=== PATIENT | female | born 1940 | race Caucasian/White ===

== ENCOUNTER 2023-06-29 13:24 | Emergency (ER) | payer MEDICARE, OTHER, SELFPAY ==
[2023-06-29 13:25] VITALS: BP 114/54; BMI 28.1
[2023-06-29] MEDS: PERCOCET 5/325 1 TABLET PO (14:21)
--- NOTE | 2023-06-29 14:22 | ED.GENMED ---
Addendum entered and electronically signed by Viot Kirby DO 06/29/23 15:57:
Patient ambulated in the ER with a walker looks comfortable
Original Note:
History of Present Illness
General
Chief Complaint: Back Pain
Source: patient and family
Exam Limitations: none
Time Seen by Provider: 06/29/23 14:09
Nursing documentation reviewed up to this point in time: agreed with
Travel History
Have you had any contact with someone who has COVID-19?: No
Do you have any symptoms of coronavirus? Fever > 100 degrees, chills, cough, shortness of breath, sore throat, loss of taste or smell, muscle aches, or headache?: No
History of Present Illness
History of Present Illness:
82 female lives alone accompanied by her sister atraumatic left-sided back pain, worse with movement feels like a spasm onset a day or so ago has history of back issues seen by Dr. Cronin had a procedure few years ago she had aneurysm clip cannot
get an MRI, she has a pacemaker A-fib on Eliquis also diabetes no fevers no trouble urinating no problems her bowels
Past History
Past History
ED Past Medical History: Arrthythmia, HTN, Hypercholesterolemia and NIDDM
ED Past Surgical History: Cardiac and Orthopedic (Minimally invasive back procedure)
Social History
Tobacco: Non-smoker
Alcohol: None
Drug: None
Personal: Single
Living: alone
Employment: Employed
Review of Systems
Review of Systems
All Other Systems: Not applicable
Constitutional: Denies fever or chills
EENT: Reports no symptoms
Respiratory: Reports no symptoms
Cardiac: Reports no symptoms
ABD/GI: Reports no symptoms
: Reports no symptoms; Denies incontinence or bleeding
Musculoskeletal: Reports back pain
Neurological: Reports no symptoms
Phy Exam
Physical Exam
Physical Exam:
Physical Exam
General: no apparent distress, not acutely ill
Neck: No jaundice
Heart: Regular
Lungs: no acute respiratory distress.
Back: Reproducible spasm in the lower lumbar region on the left
Neuro: alert and oriented. no focal neurological deficits
Skin: no rash
Psychiatric: well kept. interactive and cooperative
Extremities: Positive straight leg raise on the left around 40 degrees
Course
Orders/Labs/Results
Orders:
Orders
06/29/23 14:19
Oxycodone/Acetaminophen [Percocet 5/325] 1 tablet PO NOW STA
Lumbar Spine, 2 or 3 View [CR Lumbar Spine 2 Or 3 Views] Urgent
Comment:
Reason For Exam: pain
06/29/23 16:00
Lidocaine [Lidocaine 4% Patch] 1 patch TOPICAL DAILY
Vital Signs
Initial and Last Documented VS:
Initial Vital Signs
Temp Pulse Resp BP Pulse Ox
98.2 F 88 16 114/54 99
06/29/23 13:25 06/29/23 13:25 06/29/23 13:25 06/29/23 13:25 06/29/23 13:25
Last Documented Vital Signs
Temp Pulse Resp BP Pulse Ox
98.2 F 67 16 120/46 100
06/29/23 13:25 06/29/23 15:25 06/29/23 15:25 06/29/23 15:25 06/29/23 15:25
MDM/Problems Addressed
Differential Diagnosis Includes:
Strain strain radiculopathy very low clinical suspicion for discitis or epidural abscess no signs of cauda equina by history physical
MDM/Problems Addressed:
Back pain
Chronic conditions affecting care:
Prior back issues
Chronic conditions affecting care: DM and Arrhythmia
Acute Exacerbation and/or Progression of Chronic Illness: DM and Arrhythmia
*Radiology
Radiology exam reviewed: preliminary read by ED provider
*Pulse Oximetry
Patient hypoxic: no
*Critical Care Note
Total Time (30-74mins, 75-104mins- exclusive of procedures): Not Applicable
Update Note
Update Note:
Update x-ray noted
Patient appears comfortable will ambulate her try Lidoderm patch for home
f/u with Andrea Cronin
ED Attending Note
-
Portions of this chart may have been created with voice recognition software.� Occasional wrong word or��sound alike� substitutions may have occurred due to the inherent limitations of voice recognition software.
Discharge Plan
Departure
Patient Disposition: Home (Routine Discharge)
Date of Disposition: 06/29/23
Time of Disposition: 15:52
Patient with high blood pressure during this ER visit?: No
Condition: Good
Discharge Problem:
Back pain
Instructions: Low Back Pain (DC)
Prescriptions:
New
oxycodone-acetaminophen [Percocet] 5-325 mg tablet
1 tab PO Q6HPRN PRN (Reason: pain) Qty: 10 0RF
docusate sodium [Colace] 100 mg capsule
100 mg PO BID PRN (Reason: constipation) Qty: 20 0RF
lidocaine [Lidoderm] 5 % adhesive patch,medicated
1 patch topical DAILY Qty: 15 0RF
Rx Instructions:
Take off after 12 hours
No Action
Areds
1 tab PO BID
metformin 500 MG tablet
850 mg PO BID
atenolol 25 MG tablet
25 mg PO HS
lisinopril 2.5 MG tablet
2.5 mg PO QPM
atenolol 50 MG tablet
50 mg PO .AM
glipizide 5 MG tablet
5 mg PO DAILY
Simvastatin
40 mg PO QPM
Eliquis:
5 mg PO BID Qty: 0 0RF
Rx Instructions:
Restart on 02/19/14
Referrals:
Dale Carias, [Family Provider] -
Interventions
Interventions:
*Risk Screen - Suicide Last Done: 06/29/23 13:25
*General Assessment Last Done: 06/29/23 13:44
*Neglect/Abuse Screening Last Done: 06/29/23 13:25
ED- Fall Risk Assessment Last Done: 06/29/23 14:07
*ED COVID-19 Vaccine History Last Done: 06/29/23 13:25
ED-Musculoskeletal Assessment Last Done: 06/29/23 13:44
[2023-06-29 15:25] VITALS: BP 120/46
[2023-06-29] MEDS: LIDOCAINE 4% PATCH 1 PATCH TOPICAL (15:53)
--- NOTE | 2023-06-29 15:56 | ED.GENMED ---
History of Present Illness
General
Chief Complaint: Back Pain
Time Seen by Provider: 06/29/23 14:09
Travel History
Have you had any contact with someone who has COVID-19?: No
Do you have any symptoms of coronavirus? Fever > 100 degrees, chills, cough, shortness of breath, sore throat, loss of taste or smell, muscle aches, or headache?: No
Past History
Past History
ED Past Medical History: Arrthythmia, HTN, Hypercholesterolemia and NIDDM
ED Past Surgical History: Cardiac and Orthopedic (Minimally invasive back procedure)
Social History
Tobacco: Non-smoker
Alcohol: None
Drug: None
Personal: Single
Living: alone
Employment: Employed
Course
Orders/Labs/Results
Orders:
Orders
06/29/23 14:19
Oxycodone/Acetaminophen [Percocet 5/325] 1 tablet PO NOW STA
Lumbar Spine, 2 or 3 View [CR Lumbar Spine 2 Or 3 Views] Urgent
Comment:
Reason For Exam: pain
06/29/23 16:00
Lidocaine [Lidocaine 4% Patch] 1 patch TOPICAL DAILY
Vital Signs
Initial and Last Documented VS:
Initial Vital Signs
Temp Pulse Resp BP Pulse Ox
98.2 F 88 16 114/54 99
06/29/23 13:25 06/29/23 13:25 06/29/23 13:25 06/29/23 13:25 06/29/23 13:25
Last Documented Vital Signs
Temp Pulse Resp BP Pulse Ox
98.2 F 67 16 120/46 100
06/29/23 13:25 06/29/23 15:25 06/29/23 15:25 06/29/23 15:25 06/29/23 15:25
Update Note
Update Note:
Update patient ambulating around the ER with her walker looks comfortable
ED Attending Note
-
Portions of this chart may have been created with voice recognition software.� Occasional wrong word or��sound alike� substitutions may have occurred due to the inherent limitations of voice recognition software.
Discharge Plan
Departure
Patient Disposition: Home (Routine Discharge)
Date of Disposition: 06/29/23
Time of Disposition: 15:52
Patient with high blood pressure during this ER visit?: No
Condition: Good
Discharge Problem:
Back pain
Instructions: Low Back Pain (DC)
Prescriptions:
New
oxycodone-acetaminophen [Percocet] 5-325 mg tablet
1 tab PO Q6HPRN PRN (Reason: pain) Qty: 10 0RF
docusate sodium [Colace] 100 mg capsule
100 mg PO BID PRN (Reason: constipation) Qty: 20 0RF
lidocaine [Lidoderm] 5 % adhesive patch,medicated
1 patch topical DAILY Qty: 15 0RF
Rx Instructions:
Take off after 12 hours
No Action
Areds
1 tab PO BID
metformin 500 MG tablet
850 mg PO BID
atenolol 25 MG tablet
25 mg PO HS
lisinopril 2.5 MG tablet
2.5 mg PO QPM
atenolol 50 MG tablet
50 mg PO .AM
glipizide 5 MG tablet
5 mg PO DAILY
Simvastatin
40 mg PO QPM
Eliquis:
5 mg PO BID Qty: 0 0RF
Rx Instructions:
Restart on 02/19/14
Referrals:
Andrea Cronin MD [Active] - Next open appointment
Dale Carias DO [Family Provider] - Next open appointment
Interventions
Interventions:
*Risk Screen - Suicide Last Done: 06/29/23 13:25
*General Assessment Last Done: 06/29/23 13:44
*Neglect/Abuse Screening Last Done: 06/29/23 13:25
ED- Fall Risk Assessment Last Done: 06/29/23 14:07
*ED COVID-19 Vaccine History Last Done: 06/29/23 13:25
ED-Musculoskeletal Assessment Last Done: 06/29/23 13:44
--- NOTE | 2023-06-29 16:26 | EDRN ---
pt was able to ambulate with a walker without difficulty. Discharged home with pain meds.
== END 2023-06-29 16:27 | disposition home or self-care (01) ==
LOC: EMR 13:24
PROVIDERS: EMERGENCY PHYSICIAN Emergency Medicine; FAMILY PHYSICIAN Family Medicine
DX: M54.9 Dorsalgia, unspecified (principal); I10 Essential (primary) hypertension; E78.00 Pure hypercholesterolemia, unspecified; E11.9 Type 2 diabetes mellitus without complications; G89.29 Other chronic pain
CPT/HCPCS: 99283; 72100

== ENCOUNTER → 2023-07-22 10:24 | Outpatient (REF) | payer MEDICARE, OTHER, SELFPAY | LOC: RAD 10:24 | PROVIDERS: ATTENDING PHYSICIAN Internal Medicine Cardiovascular Disease; FAMILY PHYSICIAN Family Medicine | DX: R42 Dizziness and giddiness (principal); E85.4 Organ-limited amyloidosis | CPT/HCPCS: 78803; A9538 ==

== ENCOUNTER → 2023-09-18 09:17 | Outpatient (REF) | payer MEDICARE, OTHER, SELFPAY | LOC: RAD 09:17 | PROVIDERS: ATTENDING PHYSICIAN Internal Medicine Cardiovascular Disease; FAMILY PHYSICIAN Family Medicine | DX: R42 Dizziness and giddiness (principal); I65.23 Occlusion and stenosis of bilateral carotid arteries | CPT/HCPCS: 93880 ==

== ENCOUNTER → 2023-09-22 10:56 | Outpatient (REF) | payer MEDICARE, OTHER, SELFPAY | LOC: WDC 10:56 | PROVIDERS: ATTENDING PHYSICIAN Family Medicine | DX: Z12.31 Encounter for screening mammogram for malignant neoplasm of breast (principal) | CPT/HCPCS: 77063; 77067 ==

== ENCOUNTER → 2023-11-26 09:10 | Outpatient (REF) | payer MEDICARE, OTHER, SELFPAY | LOC: RAD 09:10 | PROVIDERS: ATTENDING PHYSICIAN Family Medicine | DX: M85.89 Other specified disorders of bone density and structure, multiple sites (principal) | CPT/HCPCS: 77080 ==

== ENCOUNTER → 2024-03-01 09:27 | Outpatient (REF) | payer MEDICARE, OTHER, SELFPAY | LOC: RCS 09:27 | PROVIDERS: ATTENDING PHYSICIAN Internal Medicine Cardiovascular Disease; FAMILY PHYSICIAN Family Medicine | DX: E85.4 Organ-limited amyloidosis (principal); I43 Cardiomyopathy in diseases classified elsewhere | CPT/HCPCS: 93306; 93356 ==

== ENCOUNTER → 2024-03-23 10:27 | Outpatient (REF) | payer MEDICARE, OTHER, SELFPAY | LOC: RAD 10:27 | PROVIDERS: ATTENDING PHYSICIAN Internal Medicine Cardiovascular Disease; FAMILY PHYSICIAN Family Medicine | DX: I65.23 Occlusion and stenosis of bilateral carotid arteries (principal) | CPT/HCPCS: 93880 ==

== ENCOUNTER → 2024-06-03 10:32 | Outpatient (REF) | payer MEDICARE, OTHER, SELFPAY | LOC: HWRAD 10:32 | PROVIDERS: ATTENDING PHYSICIAN Psychiatry & Neurology Neurology; FAMILY PHYSICIAN Family Medicine | DX: M54.16 Radiculopathy, lumbar region (principal); M54.12 Radiculopathy, cervical region | CPT/HCPCS: 72125; 72131 ==

== ENCOUNTER 2024-07-24 18:07 | Emergency (ER) | payer MEDICARE, OTHER, SELFPAY ==
[2024-07-24] VITALS (10 sets, daily range): BP systolic 101–152; BP diastolic 45–70
[2024-07-24 18:35] LABS: % Basophils 0.3 % (0-2); % Immature Granulocytes 0.4 % (0-0.5); % Lymphocytes 4.5 % (20.5-51.1); % Monocytes 4.9 % (1.7-9.3); % Neutrophils 89.9 % (42.2-75.2); Absolute Lymphocytes 0.5 10^3/uL (1.2-3.4); Absolute Monocytes 0.5 10^3/uL (0.1-0.6); Absolute Neutrophils 9.8 10^3/uL (1.4-6.5); Hemoglobin 12.3 g/dL (12.0-16.0); Mean Corp Hgb Conc. 34.2 g/dL (33.0-37.0); Mean Corpuscular Hgb 31.6 pg (27.0-31.0); Mean Corpuscular Volume 92.5 fL (81.0-99.0); Mean Platelet Volume 10.3 fL (7.4-10.4); Nucleated Red Blood Cells % 0 %; Platelet Count 114 10^3/uL (130-400); Red Blood Cell Count 3.89 10^6/uL (4.20-5.40); Red Cell Dist. Width 13.2 % (11.5-14.5); White Blood Cell Count 10.8 10^3/uL (4.8-10.8)
[2024-07-24 18:43] LABS: Lactic Acid 3.3 mmol/L (0.7-2.0)
[2024-07-24 18:48] LABS: COVID-19 Antigen Negative (Negative)
[2024-07-24 18:50] LABS: AST (SGOT) 83 U/L (14-36); Albumin 3.5 g/dl (3.5-5.0); Alkaline Phosphatase 90 U/L (38-126); Blood Urea Nitrogen 38 mg/dl (7-17); Calcium 8.9 mg/dl (8.4-10.2); Carbon Dioxide 20 mmol/L (22-30); Chloride 103 mmol/L (98-107); Glucose 208 mg/dl (70-99); Potassium 3.8 mmol/L (3.5-5.1); Sodium 135 mmol/L (135-145); Total Bilirubin 1.2 mg/dl (0.2-1.3); Total Protein 6.2 g/dl (6.3-8.2); eGFR 41.06
[2024-07-24 19:01] LABS: ALT (SGPT) 77 U/L (0-35)
[2024-07-24] MEDS: NSS 1000 IV (20:06)
--- NOTE | 2024-07-24 21:02 | ED.GENMED ---
Addendum entered and electronically signed by Sukumar Corrigan PA-C 07/25/24 08:53:
Blood culture shows gram-negative bacilli in the pulmonary result. I called the patient and spoke with her advised she can return here for further evaluation
Original Note:
History of Present Illness
General
Chief Complaint: Fever
Source: patient
Exam Limitations: none
Time Seen by Provider: 07/24/24 19:42
History of Present Illness
History of Present Illness:
Shaking chills 2 days ago. Had a near syncopal episode during that spell. [place] off yesterday some nausea just not feeling well. Not more specific than that. Today actually feels slightly better. No cough no abdominal pain no urinary symptoms no
fever. Recent back surgery. No distal numbness tingling or weakness.
Past History
Past History
ED Past Medical History: Arrthythmia, HTN, Hypercholesterolemia and NIDDM
ED Past Surgical History: Cardiac and Orthopedic (Minimally invasive back procedure)
Social History
Tobacco: Non-smoker
Alcohol: None
Drug: None
Personal: Single
Living: alone
Employment: Employed
Review of Systems
Review of Systems
All Other Systems: Not applicable
Constitutional: Reports chills
Cardiac: Reports no symptoms
ABD/GI: Denies abdominal pain
: Reports no symptoms
Phy Exam
Physical Exam
Physical Exam:
GENERAL: Alert and oriented in no apparent distress
EYE: Orbits normal.
NECK: Supple, no significant adenopathy.
ENT: Pharynx without erythema
CARDIAC: Regular rate and rhythm without any obvious murmurs.
LUNGS: Clear breath sounds,normal
ABDOMEN: Soft, without focal tenderness or distention
NEUROLOGICAL: Alert and oriented , grossly non-focal. Good lower extremity strength
SKIN: Warm and dry, no rash or lesion, no discoloration, skin intact.
MUSCULOSKELETAL: No edema,no deformity.Good color
PSYCH: Normal and appropriate interaction.
Course
Orders/Labs/Results
Orders:
Orders
07/24/24 18:15
Electrocardiogram (*1) Urgent
Reason for Study: Fatigue / Weakness
EKG- Treatment ONCE
07/24/24 18:21
COVID-19 Antigen Urgent
Source: Nasal Swab
Complete Blood Count/With Diff Urgent
Comprehensive Metabolic Panel Urgent
Lactic Acid Urgent
Blood Culture Urgent
DIONICIO Source: Blood/Venous
Specimen Description:
Influenza A+B Rapid Molecular Urgent
DIONICIO Source: Nasal Swab
Specimen Description:
07/24/24 19:54
IV Insert/Care/Rem.- Treatment PRN
0.9% Sodium Chloride 1000 ml [Nss] 1,000 ml IV BOLUS
CXR2 [CR Chest - 2 Views ] Urgent
Comment:
Reason For Exam: Fever chills
07/24/24 19:56
US Abdomen Complete/Upper Urgent
Comment:
Reason For Exam: Fever/elevated LFTs
07/24/24 22:00
Urinalysis Reflex To Culture Urgent
Date Specimen was Collected: 07/24/24
Time Specimen was Collected: 19:58
Urine Microscopic Reflex Cult Urgent
Urine Culture Urgent
DIONICIO Source: U
Specimen Description:
Date Specimen was Collected: 07/24/24
Time Specimen was Collected: 19:58
07/24/24 22:01
Lactic Acid Urgent
07/24/24 22:53
CefTRIAXone [Rocephin] 1,000 mg IV NOW STA
07/24/24 23:29
CefTRIAXone [Rocephin] 1,000 mg .ROUTE .STK-MED ONE
Abnormal Lab Results
07/24/24 07/24/24
18:21 22:00
RBC 3.89 L 10^6/uL
(4.20-5.40)
Hct 36.0 L %
(37.0-47.0)
MCH 31.6 H pg
(27.0-31.0)
Plt Count 114 L 10^3/uL
(130-400)
Absolute Neuts (auto) 9.8 H 10^3/uL
(1.4-6.5)
Absolute Lymphs (auto) 0.5 L 10^3/uL
(1.2-3.4)
Neutrophils % 89.9 H %
(42.2-75.2)
Lymphocytes % 4.5 L %
(20.5-51.1)
Carbon Dioxide 20 L mmol/L
(22-30)
BUN 38 H mg/dl
(7-17)
Creatinine 1.3 H mg/dL
(0.6-1.0)
Glucose 208 H mg/dl
(70-99)
Lactic Acid 3.3 H mmol/L
(0.7-2.0)
AST 83 H U/L
(14-36)
ALT 77 H U/L
(0-35)
Total Protein 6.2 L g/dl
(6.3-8.2)
Ur Occult Blood Reflex 2+ A
(Negative)
Leukocyte Esterase Rfl 1+ A
(Negative)
Urine RBC 16-20 A /HPF
(0-2)
Urine WBC (Reflex) >100 A /HPF
(0-5)
Urine Bacteria (Reflex) Many A
(Negative)
Urine Glucose 4+ A
(Negative)
Urine Albumin (Reflex) 2+ A
(Neg - Trace)
07/24/24 18:21
07/24/24 18:21
Vital Signs
Initial and Last Documented VS:
Initial Vital Signs
Temp Pulse Resp BP Pulse Ox
100.5 F H 87 16 101/45 99
07/24/24 18:09 07/24/24 18:09 07/24/24 18:09 07/24/24 18:09 07/24/24 18:09
Last Documented Vital Signs
Temp Pulse Resp BP Pulse Ox
100.5 F H 76 17 135/54 98
07/24/24 18:09 07/24/24 20:54 07/24/24 20:54 07/24/24 23:00 07/24/24 23:00
*Radiology
Radiology exam reviewed: preliminary read by ED provider (Negative) and radiology read reviewed (Unremarkable ultrasound)
*Pulse Oximetry
Patient hypoxic: no
*Critical Care Note
Total Time (30-74mins, 75-104mins- exclusive of procedures): Not Applicable
Update Note
Update Note:
Patient is remained stable and nontoxic. She appears well. Labs are stable. Initial lactic acid which was elevated is now perfectly normal. I clinically do not feel she is septic. Urinalysis is positive. There is no hydronephrosis. Will start
Rocephin Omnicef and follow-up. Interrogation was within normal limits. Back appears well. No neurologic symptoms related to her recent surgery. No erythema or drainage.
ED Attending Note
-
Portions of this chart may have been created with voice recognition software.� Occasional wrong word or��sound alike� substitutions may have occurred due to the inherent limitations of voice recognition software.
Discharge Plan
Departure
Patient Disposition: Home (Routine Discharge)
Date of Disposition: 07/24/24
Time of Disposition: 22:54
Patient with high blood pressure during this ER visit?: Yes
Discharge Problem:
UTI/early pyelonephritis, Pacemaker, Near syncope
Instructions: Urinary tract infections in adults, Near Fainting (DC)
Prescriptions:
New
cefdinir 300 mg capsule
300 mg PO BID 7 Days Qty: 14 0RF
No Action
Areds
1 tab PO BID
metformin 500 MG tablet
850 mg PO BID
atenolol 25 MG tablet
25 mg PO HS
lisinopril 2.5 MG tablet
2.5 mg PO QPM
atenolol 50 MG tablet
50 mg PO .AM
glipizide 5 MG tablet
5 mg PO DAILY
Simvastatin
40 mg PO QPM
Eliquis:
5 mg PO BID Qty: 0 0RF
Rx Instructions:
Restart on 02/19/14
oxycodone-acetaminophen [Percocet] 5-325 mg tablet
1 tab PO Q6HPRN PRN (Reason: pain) Qty: 10 0RF
docusate sodium [Colace] 100 mg capsule
100 mg PO BID PRN (Reason: constipation) Qty: 20 0RF
lidocaine [Lidoderm] 5 % adhesive patch,medicated
1 patch topical DAILY Qty: 15 0RF
Rx Instructions:
Take off after 12 hours
Referrals:
Dale Carias, [Family Provider] - Follow up in 2-3 days
Activity Restrictions/Additional Instructions:
Your prescription was sent to your pharmacy. Start the oral antibiotics tomorrow evening
Stay well-hydrated
Follow-up closely with your primary physician
Interventions
Interventions:
*Risk Screen - Suicide Last Done: 07/24/24 18:15
*General Assessment Last Done: 07/24/24 23:40
*Neglect/Abuse Screening Last Done: 07/24/24 18:15
*ED- Fall Risk Assessment Last Done: 07/24/24 23:40
*ED COVID-19 Vaccine History Last Done: 07/24/24 23:40
*Nursing Disposition Last Done: 07/24/24 23:40
ED- Neurological Assessment Last Done: 07/24/24 22:31
ED-Skin Assessment Last Done: 07/24/24 22:31
Discharge Date and Time
Discharge Date/Time: 07/24/24 23:42
Print Language: [place]
[2024-07-24 22:22] LABS: Urine Albumin 2+ (Neg - Trace); Urine Bilirubin Negative (Negative); Urine Character Slightly Cloudy (Clear); Urine Color Yellow; Urine Glucose 4+ (Negative); Urine Ketone Negative (Negative); Urine Leukocyte 1+ (Negative); Urine Nitrite Negative (Negative); Urine Occult Blood 2+ (Negative); Urine Urobilinogen Negative (Neg - 1+)
[2024-07-24 22:36] LABS: Urine Bacteria Many (Negative); Urine Red Blood Cell 16-20 /HPF (0-2); Urine White Cell >100 /HPF (0-5)
[2024-07-24 22:37] LABS: Lactic Acid 1.2 mmol/L (0.7-2.0)
[2024-07-24] MEDS: ROCEPHIN 1000 MG IV (23:30)
== END 2024-07-24 23:42 | disposition home or self-care (01) ==
LOC: EMR 18:07
PROVIDERS: Emergency Medicine; EMERGENCY PHYSICIAN Emergency Medicine; FAMILY PHYSICIAN Family Medicine
DX: N12 Tubulo-interstitial nephritis, not specified as acute or chronic (principal); R55 Syncope and collapse; Z95.0 Presence of cardiac pacemaker; E78.00 Pure hypercholesterolemia, unspecified; I10 Essential (primary) hypertension; E11.9 Type 2 diabetes mellitus without complications; Z11.52 Encounter for screening for COVID-19
CPT/HCPCS: 99285; 96374; 96361; 71046; 76700; 80053; 81003; 81015; 83605; 85025; 87040; 87077; 87086; 87149; 87205; 87502; 87811; 93005

== ENCOUNTER 2024-07-25 16:38 | Inpatient (IN) | payer MEDICARE, OTHER, SELFPAY ==
[2024-07-25 12:41] VITALS: BP 115/45
--- NOTE | 2024-07-25 14:37 | ED.GENMED ---
History of Present Illness
General
Chief Complaint: Abnormal Lab Value
Source: patient, records and family
Exam Limitations: none
Time Seen by Provider: 07/25/24 14:27
Nursing documentation reviewed up to this point in time: agreed with
History of Present Illness
History of Present Illness:
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 coli seen here yesterday with a febrile illness UTI treated with Rocephin and p.o. antibiotics got the p.o. antibiotic filled has not
taken it yet since she got a call to return to the ER overall she is feeling better today than yesterday when she had some fevers apparently had passed out immediately few days ago no chest pain no shortness of breath denies dysuria or frequency
pacemaker was interrogated yesterday, had abdominal ultrasound with no hydronephrosis reportedly
Past History
Past History
ED Past Medical History: Arrthythmia, HTN, Hypercholesterolemia and NIDDM
ED Past Surgical History: Cardiac and Orthopedic (Minimally invasive back procedure)
Social History
Tobacco: Non-smoker
Alcohol: None
Drug: None
Personal: Single
Living: alone
Employment: Employed
Review of Systems
Review of Systems
All Other Systems: Not applicable
Constitutional: Reports fatigue; Denies fever
EENT: Reports no symptoms
Respiratory: Reports no symptoms
Cardiac: Reports no symptoms
ABD/GI: Reports no symptoms
: Reports no symptoms
Phy Exam
Physical Exam
Physical Exam:
Physical Exam
General: no apparent distress, not acutely ill
Neck: No jaundice
Heart: s1/s2 regular rate and rhythm, no murmur. equal radial pulses.
Lungs: no acute respiratory distress. clear bilaterally
Abdomen: Nontender
Neuro: alert and oriented. no focal neurological deficits
Skin: no rash
Psychiatric: well kept. interactive and cooperative
Extremities: no edema.
Course
Orders/Labs/Results
Orders:
Orders
07/25/24 14:27
Complete Blood Count/With Diff Urgent
Comprehensive Metabolic Panel Urgent
07/25/24 14:30
Lactic Acid Q4H
Comment: CANCEL 2nd LACTIC ACID IF 1st LACTIC ACID IS LESS THAN 2
Blood Culture Q30M
DIONICIO Source: Blood/Venous
Specimen Description:
07/25/24 14:37
CefTRIAXone [Rocephin] 1,000 mg IV NOW STA
07/25/24 15:00
Blood Culture Q30M
DIONICIO Source: Blood/Venous
Specimen Description:
07/25/24 18:30
Lactic Acid Q4H
Comment: CANCEL 2nd LACTIC ACID IF 1st LACTIC ACID IS LESS THAN 2
Vital Signs
Initial and Last Documented VS:
Initial Vital Signs
Temp Pulse Resp BP Pulse Ox
98.6 F 66 18 115/45 98
07/25/24 12:41 07/25/24 12:41 07/25/24 12:41 07/25/24 12:41 07/25/24 12:41
Last Documented Vital Signs
Temp Pulse Resp BP Pulse Ox
98.6 F 66 18 115/45 98
07/25/24 12:41 07/25/24 12:41 07/25/24 12:41 07/25/24 12:41 07/25/24 12:41
*Radiology
Radiology exam reviewed: radiology read reviewed
*Pulse Oximetry
Patient hypoxic: no
*Recruiting Intern Interpretation
Rate: normal
Interpretation: normal
Heart Rate: 78
Rhythm: ventricular paced
*Critical Care Note
Total Time (30-74mins, 75-104mins- exclusive of procedures): 13
Data Reviewed
Review of Other/Old Records Reveals: Labs, Radiology Studies and Progress Notes
Source: patient, family, previous radiology exam and previous hospital records
Further Testing Considered But Not Given:
CT scan
Update Note
Update Note:
Update patient treated appropriately thorough workup apparently felt better she has gram-negative bacteremia did receive Rocephin, sensitivities are pending at this point she has multiple comorbid conditions think be prudent admitted to the hospital
continue Rocephin pending final cultures sensitivity we will repeat her culture sensitivity will not repeat her urine and her CT scan or ultrasound
ED Attending Note
-
Portions of this chart may have been created with voice recognition software.� Occasional wrong word or��sound alike� substitutions may have occurred due to the inherent limitations of voice recognition software.
Discharge Plan
Departure
Patient Disposition: Admit
Date of Disposition: 07/25/24
Time of Disposition: 14:41
Admit to: Med/Surg
Presentation/result/management discussed w/ accepting MD/DO: Hospitalist
Patient with high blood pressure during this ER visit?: No
Condition: Fair
Covid-19: Not Applicable
Discharge Problem:
Bacteremia due to Escherichia coli
Prescriptions:
No Action
Areds
1 tab PO BID
metformin 500 MG tablet
850 mg PO BID
atenolol 25 MG tablet
25 mg PO HS
lisinopril 2.5 MG tablet
2.5 mg PO QPM
atenolol 50 MG tablet
50 mg PO .AM
glipizide 5 MG tablet
5 mg PO DAILY
Simvastatin
40 mg PO QPM
Eliquis:
5 mg PO BID Qty: 0 0RF
Rx Instructions:
Restart on 02/19/14
oxycodone-acetaminophen [Percocet] 5-325 mg tablet
1 tab PO Q6HPRN PRN (Reason: pain) Qty: 10 0RF
docusate sodium [Colace] 100 mg capsule
100 mg PO BID PRN (Reason: constipation) Qty: 20 0RF
lidocaine [Lidoderm] 5 % adhesive patch,medicated
1 patch topical DAILY Qty: 15 0RF
Rx Instructions:
Take off after 12 hours
cefdinir 300 mg capsule
300 mg PO BID 7 Days Qty: 14 0RF
Referrals:
UNKNOWN - PT DOES,NOT KNOW [Family Provider] -
Interventions
Interventions:
*Risk Screen - Suicide Last Done: 07/25/24 12:41
*General Assessment Last Done: 07/25/24 12:41
*Neglect/Abuse Screening Last Done: 07/25/24 12:41
Discharge Date and Time
Print Language: [place]
[2024-07-25] MEDS: ROCEPHIN 1000 MG IV ×2 (14:50→16:45)
[2024-07-25 15:29] LABS: % Basophils 0.2 % (0-2); % Immature Granulocytes 0.5 % (0-0.5); % Lymphocytes 6.1 % (20.5-51.1); % Monocytes 6.4 % (1.7-9.3); % Neutrophils 86.8 % (42.2-75.2); Absolute Lymphocytes 0.4 10^3/uL (1.2-3.4); Absolute Monocytes 0.4 10^3/uL (0.1-0.6); Absolute Neutrophils 5.6 10^3/uL (1.4-6.5); Hematocrit 33.9 % (37.0-47.0); Hemoglobin 11.8 g/dL (12.0-16.0); Mean Corp Hgb Conc. 34.8 g/dL (33.0-37.0); Mean Corpuscular Hgb 31.8 pg (27.0-31.0); Mean Corpuscular Volume 91.4 fL (81.0-99.0); Nucleated Red Blood Cells % 0 %; Red Blood Cell Count 3.71 10^6/uL (4.20-5.40); Red Cell Dist. Width 13.2 % (11.5-14.5); White Blood Cell Count 6.4 10^3/uL (4.8-10.8)
[2024-07-25 15:35] LABS: Lactic Acid 1.1 mmol/L (0.7-2.0)
[2024-07-25 15:37] LABS: ALT (SGPT) 79 U/L (0-35); AST (SGOT) 91 U/L (14-36); Albumin 3.7 g/dl (3.5-5.0); Alkaline Phosphatase 87 U/L (38-126); Blood Urea Nitrogen 36 mg/dl (7-17); Calcium 8.7 mg/dl (8.4-10.2); Carbon Dioxide 19 mmol/L (22-30); Chloride 104 mmol/L (98-107); Glucose 157 mg/dl (70-99); Potassium 3.9 mmol/L (3.5-5.1); Sodium 132 mmol/L (135-145); Total Bilirubin 1.1 mg/dl (0.2-1.3); Total Protein 6.2 g/dl (6.3-8.2); eGFR 45.19
--- NOTE | 2024-07-25 15:51 | HPS.HSE ---
Family Physician
-
Family Physician: NOT KNOW UNKNOWN - PT DOES
Chief Complaint
-
(+) Blood culture
History of Present Illness
83-year-old female with cardiac amyloidosis, paroxysmal AF on Eliquis, bilateral carotid stenosis (50-75% right sided, <50% left-sided) NIDDM, CKD stage III, GERD/esophagitis/gastritis, primary hypertension, dyslipidemia, diverticulosis, H/O
cerebral aneurysm s/p craniotomy (1990), H/O sick sinus syndrome s/p PPM presenting to the ED today after she was called in regards to positive blood culture. Patient was seen in the ED on with febrile illness, UTI that was treated with IV
CTX and transitioned to cefdinir for discharge. Patient had the antibiotic filled but has not taken a dose yet. Blood cultures today returned positive for E. coli. Mentions improvement to her symptoms compared with yesterday, when she was
experiencing fevers and presyncope/syncope. Denies fevers today, chest pain, dyspnea, dysuria. Had renal ultrasound yesterday without hydronephrosis, showed 2.3 cm fusiform AAA. Chest x-ray yesterday was unremarkable for any acute findings or
signs of pneumonia. AFVSS upon arrival back to the ED. Repeat BMP and CBC are pending, labs from 07/24 in the ED were without any significant findings. Repeat blood cultures x 2 were obtained and she was resumed on IV ceftriaxone in the ED. Urine
culture from 07/24 remains pending.
Medical History
Past Medical History
Past Medical History: Reports Other
Additional Past Medical History:
Cardiac amyloidosis
Cardiomyopathy
Bilateral carotid artery stenosis
Hypertension
Dyslipidemia
NIDDM
CKD stage III
Paroxysmal atrial fibrillation on Eliquis
Hypothyroidism
H/O tachybradycardia syndrome
H/O cerebral intracranial aneurysm
Past Surgical History: Reports Other
Additional Past Surgical History:
Oophorectomy
Appendectomy
Craniotomy (1990)
Cholecystectomy (late )
Pacemaker
Social History
Tobacco: Non-smoker
Alcohol: None
Drug: None
Family History
Family History: Not pertinent
Allergies / Home Medications
Allergies reflects when Allergies were last updated in [facility].
Home Medications with original date entered in [facility]
Allergy/Medication List:
Allergies
Allergy/AdvReac Type Severity Reaction Status Date / Time
No Known Allergies Allergy Verified 07/25/24 12:40
Home Medications
apixaban 5 mg tablet (Eliquis) 5 mg PO BID 07/25/24
atorvastatin 40 mg tablet 40 mg PO HS 07/25/24
calcium carbonate 1,000 mg PO DAILYPRN PRN upset stomach 07/25/24
cholecalciferol (vitamin D3) 50 mcg (2,000 unit) tablet 50 mcg PO DAILY 07/25/24
dapagliflozin propanediol 10 mg tablet (Farxiga) 10 mg PO DAILY 07/25/24
levothyroxine 50 mcg tablet 50 mcg PO DAILY 07/25/24
metoprolol succinate 25 mg tablet,extended release 24 hr 12.5 mg PO DAILY 07/25/24
pioglitazone 15 mg tablet 15 mg PO DAILY 07/25/24
semaglutide 7 mg tablet (Rybelsus) 7 mg PO DAILY 07/25/24
tafamidis meglumine 20 mg capsule (Vyndaqel) 80 mg PO DAILY 07/25/24
zinc acetate 50 mg (zinc) capsule 50 mg PO DAILY 07/25/24
Review of Systems
-
History Source: Patient
A 12 point ROS was completed and negative except as noted: No
Constitutional: Reports See HPI
EENT: Reports No Symptoms
Respiratory: Reports No Symptoms
Cardiac: Reports No Symptoms
Abdomen/GI: Reports No Symptoms
: Reports See HPI
Musculoskeletal: Reports No Symptoms
Skin: Reports No Symptoms
Neurological: Reports No Symptoms
Endocrine: Reports No Symptoms
Hematologic/Lymphatic: Reports No Symptoms
Psych: Reports No Symptoms
Physical Exam
Vital Signs
Vital Signs
Temp Pulse Resp BP Pulse Ox
98.6 F 66 18 115/45 98
07/25/24 12:41 07/25/24 12:41 07/25/24 12:41 07/25/24 12:41 07/25/24 12:41
Physical Exam
General: Well Developed, Well Nourished, No Apparent Distress and Other (Nontoxic)
HEENT: NormoCephalic, Anicteric, Moist mucous membranes, Atraumatic and PERRLA
Respiratory: Clear and Non Labored Respirations; No Accessory Resp Muscle Use
Cardiac: S1/S2 and Regular Rhythm; No Murmur, Rub, Gallop, Peripheral Edema or JVD
GI: Soft, Non Tender, Non Distended and Normal Bowel Sounds
Genito-urinary: Other (No suprapubic discomfort on exam)
Musculoskeletal: Clubbing, No Clubbing, Cyanosis and No Cyanosis
Skin: Warm and Dry; No Rash
Neuro: AO x 3 and Nonfocal/grossly intact
Psych: Calm
Laboratory Results
-
07/25/24 14:50
07/25/24 14:50
Laboratory Results
Lactic Acid 1.1 mmol/L (0.7-2.0) 07/25/24 14:50
Total Bilirubin 1.1 mg/dl (0.2-1.3) 07/25/24 14:50
AST 91 U/L (14-36) H 07/25/24 14:50
ALT 79 U/L (0-35) H 07/25/24 14:50
Alkaline Phosphatase 87 U/L (38-126) 07/25/24 14:50
Data Reviewed
-
Lab Data: Labs Reviewed by me, Discussed with Physician (ED attending) and Discussed with Patient
Impression/Plan
-
#E. coli bacteremia
#Cystitis
-Presented 07/24 with fever and near syncopal episode, clinically improved and DC home on cefdinir
-Blood cultures today returned positive for E. coli, urine culture remains pending, no sensitivities available
-No SIRS criteria present today, nontoxic-appearing; suspect 1 dose of IV CTX yesterday was beneficial
-Patient states that she picked up her prescription for cefdinir but has yet to begin taking it
-Repeat blood cultures obtained, was resumed on IV ceftriaxone
-Has remained hemodynamically stable; no fever or leukocytosis today
Plan
-Continue IV ceftriaxone 2 g daily for now pending culture sensitivities
-Follow-up blood culture sensitivity from 07/24, and repeat blood cultures from 07/25
-Follow-up urine culture from initial ED visit on 07/24
-Trend CBC and temperature curve
-Consider ID consult if repeat cultures positive
-Maintenance IVF
#Hypovolemic hyponatremia
-Sodium 132, suspect hypovolemic state with coinciding bacteremia
-Sodium yesterday in ED was 135, received some IVF yesterday in the ED
-Will start on maintenance IVF, judicious rate due to cardiac amyloid
-Trend BMP, consider checking urine studies if worsening
#Presyncope
-Suspect related to hypotension/orthostasis in the context of bacteremia
-Blood pressure here today is normotensive but on the soft side
-Will check orthostatic blood pressures and monitor vitals
-Monitor on telemetry for malignant arrhythmias w/ amyloid
-PT/OT
#Mild normocytic anemia
-Hemoglobin baseline close to normal range; 12.3 yesterday, 11.8 today
-Likely of no clinical significance with her age
-Monitor for bleeding, consider iron studies if worsening
#Cardiac amyloidosis
#Cardiomyopathy
-History of ATTR amyloidosis, unclear if this is variant versus wild-type; s/p genetic testing
-Most recent echo with LVEF 60 to 65% and normal diastology, GLS -18.3%, Mild , no speckling mentioned
-Home regimen includes lisinopril, metoprolol, Farxiga; currently on ATTR GDMT with tafamidis
-Does not take any loop diuretic at baseline, does not appear to have clinically decompensated heart failure
-Appears euvolemic at this time, monitor I's/O's and weights
#Paroxysmal atrial fibrillation
-Home medications include metoprolol succinate and Eliquis twice daily
-No known history of EP interventions
-Heart rate WNL, NSR at this time
-Telemetry
#CKD stage III
-Unclear etiology, no history of renal amyloidosis
-creatinine baseline near 1.1-1.3 with GFR in the 40s
-Does not seem to be associated with acidemia, anemia, bone mineral disease
#NIDDM
-No recent A1c; no known microvascular disease complications
-Home regimen includes glipizide/SGLT2i/GLP-1 agonist, lisinopril for kidney protection, and statin
-Will transition to insulin sliding scale with Accu-Cheks while inpatient
-Blood glucose goal 140-180
#Primary hypertension
-No known history of hypertensive systemic
-Home regimen includes lisinopril 2.5 mg, metoprolol succinate
-Continue to monitor vital signs, currently well-controlled
#Bilateral carotid artery stenosis
#Dyslipidemia
-Most recent carotid US with 50 to 75% right-sided stenosis, <50% left-sided stenosis
-Home regimen includes high intensity statin; no ASA but is on DOAC
-Will need to have OP ultrasounds to reassess
#Hypothyroidism
-Unclear etiology, home regimen includes levothyroxine 50 mcg daily
-No signs or symptoms of thyroid dysfunction at this time
#Osteoporosis
-Home regimen includes calcium carbonate and vitamin D3
#H/O tachybradycardia syndrome s/p PPM
#H/O intracranial aneurysm s/p craniotomy
DVT prophylaxis: Home Eliquis
Diet: Carbohydrate controlled
CODE STATUS: Full code
Disposition: Telemetry
[2024-07-25 16:38] LABS: Mean Platelet Volume 10.7 fL (7.4-10.4); Platelet Count 89 10^3/uL (130-400)
[2024-07-25 17:47] VITALS: BP 118/74
[2024-07-25 18:27] VITALS: BP 145/58
[2024-07-25 18:28] VITALS: BMI 26.8
--- NOTE | 2024-07-25 18:30 | PTCARENOTE ---
Pt arrived to rm 402-2 at this time from the ED, Pt AAOx3, denying any pain, JOHNSON (chronic per pt), A-paced on telemetry. See shift assessment for further detail. Oriented pt to rm, plan of care, reporting concerns, call mcmillan, fall risk etc- pt
verbalized understanding. Call mcmillan within reach.
[2024-07-25 18:59] LABS: Glucose - Point of Care 130 mg/dl (70-99)
[2024-07-25 19:00] VITALS: BP 94/45
[2024-07-25] MEDS: LIPITOR 40 MG PO (20:16)
[2024-07-25] MEDS: ELIQUIS 5 MG PO (20:16)
[2024-07-25] MEDS: LR 1000 IV (20:16)
[2024-07-25] MEDS: FLUSH (NSS) 1 FLUSH IV (20:20)
[2024-07-25 20:26] VITALS: BMI 26.8
[2024-07-25 21:19] LABS: Glucose - Point of Care 199 mg/dl (70-99)
[2024-07-25 21:31] VITALS: BP 116/59
[2024-07-25] MEDS: TYLENOL 650 MG PO (21:33)
--- NOTE | 2024-07-25 22:15 | PTCARENOTE ---
Pt resting in bed. HR increasing to 140s frequently. vss. Pt apaced, vpaced and underlying afib on tele monitor. denies cp or sob. Darby FALK notified, iv lopressor, mag and potassium ordered. no issues.
[2024-07-25] MEDS: LOPRESSOR 5 MG IV (22:42)
[2024-07-25] MEDS: MAGNESIUM SULFATE 102 GRAMS IV (22:42)
[2024-07-25 23:30] VITALS: BP 106/46
[2024-07-25] MEDS: KCL 160 MEQ IV (23:56)
[2024-07-26 03:14] VITALS: BP 122/57
[2024-07-26 05:46] VITALS: BMI 26.6
[2024-07-26] MEDS: SYNTHROID 50 MCG PO (06:04)
[2024-07-26] MEDS: LOPRESSOR 5 MG IV (06:10)
[2024-07-26 06:20] LABS: Blood Urea Nitrogen 32 mg/dl (7-17); Calcium 8.6 mg/dl (8.4-10.2); Carbon Dioxide 17 mmol/L (22-30); Chloride 111 mmol/L (98-107); Estimated Creatinine Clearance 37 ml/min; Glucose 131 mg/dl (70-99); Magnesium 1.9 mg/dl (1.6-2.3); Potassium 3.8 mmol/L (3.5-5.1); Sodium 137 mmol/L (135-145); eGFR 50.17
[2024-07-26 06:27] LABS: % Basophils 0.5 % (0-2); % Eosinophils 0.2 % (0-6); % Immature Granulocytes 0.2 % (0-0.5); % Lymphocytes 10.2 % (20.5-51.1); % Monocytes 11.9 % (1.7-9.3); Absolute Lymphocytes 0.4 10^3/uL (1.2-3.4); Absolute Monocytes 0.5 10^3/uL (0.1-0.6); Absolute Neutrophils 3.2 10^3/uL (1.4-6.5); Hematocrit 33.7 % (37.0-47.0); Hemoglobin 11.7 g/dL (12.0-16.0); Mean Corp Hgb Conc. 34.7 g/dL (33.0-37.0); Mean Corpuscular Hgb 31.5 pg (27.0-31.0); Mean Corpuscular Volume 90.6 fL (81.0-99.0); Mean Platelet Volume 10.7 fL (7.4-10.4); Nucleated Red Blood Cells % 0 %; Platelet Count 73 10^3/uL (130-400); Red Blood Cell Count 3.72 10^6/uL (4.20-5.40); Red Cell Dist. Width 13.2 % (11.5-14.5); White Blood Cell Count 4.1 10^3/uL (4.8-10.8)
[2024-07-26 07:10] VITALS: BP 139/76
[2024-07-26 07:46] LABS: Glucose - Point of Care 138 mg/dl (70-99)
[2024-07-26] MEDS: NOVOLOG FLEXPEN-MODERATE RESISTANCE SC (08:44)
[2024-07-26] MEDS: LR 1000 IV ×2 (08:47→17:43)
[2024-07-26] MEDS: TOPROL XL 12.5 MG PO ×2 (08:50→12:55)
[2024-07-26] MEDS: ACTOS 15 MG PO (08:50)
[2024-07-26] MEDS: VITAMIN D3 (cholecalciferol) 50 MCG PO (08:50)
[2024-07-26] MEDS: ZINC 50 MG PO (08:50)
[2024-07-26] MEDS: FARXIGA 10 MG PO (08:50)
[2024-07-26] MEDS: ELIQUIS 5 MG PO ×2 (08:50→20:02)
[2024-07-26 10:56] VITALS: BMI 26.6
[2024-07-26 11:10] VITALS: BP 124/62
[2024-07-26 11:54] LABS: Glucose - Point of Care 210 mg/dl (70-99)
--- NOTE | 2024-07-26 12:03 | CON.CAR ---
Addendum entered and electronically signed by Rashid Rodriguez MD 07/26/24 15:59:
Patient seen, interviewed and examined by me.
Well-appearing, no acute distress
Regular rate and rhythm with normal S1 and S2, no S3 no S4. There is a grade 1/6 apical holosystolic murmur and no rubs. PMI is normally placed.
Lungs are clear to auscultation bilaterally without wheezes rales or rhonchi.
Abdomen soft nontender nondistended with normoactive bowel sounds
Extremities show trace pretibial edema bilaterally no clubbing or cyanosis.
Neurologic exam is grossly nonfocal.
She is admitted with fevers and chills and found to have E. coli bacteremia from urinary tract infection.
Additionally she describes increasing burden of symptomatic atrial fibrillation.
She describes increase in burden over the past couple of weeks preceding her urinary tract infection, however over the past 48 hours burden has increased further and she is more symptomatic with higher heart rates.
She has remained anticoagulated, uninterrupted. Atrial fibrillation is paroxysmal. EKG 2 days ago demonstrated sinus rhythm/atrial pacing.
Given that she is symptomatic (mildly symptomatic with slower heart rates, more symptomatic now with faster heart rates) I recommended an attempt at rhythm control.
Complicating matters is her diagnosis of wild-type ATTR cardiac amyloidosis. Additionally she has a history of sick sinus syndrome with prior dual-chamber permanent pacemaker implantation ([employer]tronic) which is approaching VELMA within the next couple
of months.
I have recommended we initiate amiodarone 200 mg twice daily for 30 days then reduce to 200 mg daily (she has been paroxysmal with atrial fibrillation)
Amiodarone can be used in the short-term and as an outpatient there can be consideration for either maintaining a rhythm control strategy with antiarrhythmic drug therapy versus consideration for ablation. There is the option of simple rate
control, getting more aggressive with rate control, but given her cardiac amyloidosis she would be expected to do better long-term in sinus rhythm.
I have discussed all this with the patient, all of her questions have been answered and she agrees with the recommendation.
--Will initiate amiodarone 200 mg daily for 30 days then reduce to 200 mg daily
--Maintain current dose of metoprolol
--Maintain uninterrupted oral anticoagulation
--She is planned for permanent pacemaker generator change next month.
Addendum entered and electronically signed by Hermelinda Roper PA-C 07/26/24 15:33:
-
Original Note:
Consultation
Consultation Request
Date/Time Consultation Requested: 07/26/2024
Date/Time Consultation Performed: 07/26/2024
Requesting Provider: Dr. Bridges
Performing Provider: Hermelinda Roper PA-C for Dr. Nusrat Abebe
Reason for Consultation: Tachycardia
Medical History
-
History of Present Illness:
Patient is a pleasant 83-year-old female with past medical history of carotid artery disease, sick sinus syndrome status post Medtronic dual-chamber pacemaker, paroxysmal antral fibrillation on chronic anticoagulation with Eliquis, hypertension,
hyperlipidemia, cardiac amyloidosis (wild-type ATTR) maintained on Tafamidis, peripheral neuropathy, spinal stenosis cerebral aneurysm with prior craniotomy. Patient was seen in emergency department 07/24/2024 with fever, chills, rigors and near
syncopal episode. [employer] pacemaker interrogation done while patient was in emergency department which showed appropriate function. Patient did have brief episode of atrial fibrillation with rapid ventricular response on afternoon of
07/25/2023. She was found to have UTI/early pyelonephritis and was provided IV antibiotics in the ED and discharged home on oral antibiotics. Blood cultures were drawn and grew out E. coli after 24 hours prompting patient to present back to emergency
department/hospital for treatment. Blood cultures repeated in emergency department on 07/25/2024 are pending. Cardiology being asked to see patient as she was found to be in atrial fibrillation with rapid ventricular response.
Patient is aware of palpitations and increased atrial fibrillation burden over the last week or two. Feels more winded when in atrial fibrillation.
PMH:
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
Cardiomyopathy
Paroxysmal atrial fibrillation on Eliquis
Hypothyroidism
H/O tachybradycardia syndrome
Status post Medtronic dual-chamber pacemaker
Bilateral carotid artery stenosis
Hypertension
Dyslipidemia
NIDDM
CKD stage III
Carpal tunnel syndrome
Peripheral neuropathy
Spinal stenosis
H/O cerebral intracranial aneurysm
Past Medical History
Past Medical History: Other (See HPI)
Past Surgical History: Appendectomy, Cardiac (Dual-chamber Medtronic pacemaker), Cholecystectomy, Gynecological (Oophorectomy) and Other (Craniotomy 1990)
Social History
Tobacco: Former Smoker
Alcohol: None
Drug: None
Personal:
Living: With Family
Family History
Family History: Other (Father: heart failure, coronary disease. Mother: stroke, breast cancer)
Allergies / Home Medications
Allergy/AdvReac Type Severity Reaction Status Date / Time
No Known Allergies Allergy Verified 07/25/24 12:40
�Medication �Instructions �Recorded �Confirmed �Type
apixaban 5 mg tablet (Eliquis) 5 mg PO BID 07/25/24 07/25/24 History
atorvastatin 40 mg tablet 40 mg PO HS 07/25/24 07/25/24 History
calcium carbonate 1,000 mg PO DAILYPRN PRN upset 07/25/24 07/25/24 History
stomach
cholecalciferol (vitamin D3) 50 50 mcg PO DAILY 07/25/24 07/25/24 History
mcg (2,000 unit) tablet
dapagliflozin propanediol 10 mg 10 mg PO DAILY 07/25/24 07/25/24 History
tablet (Farxiga)
levothyroxine 50 mcg tablet 50 mcg PO DAILY 07/25/24 07/25/24 History
metoprolol succinate 25 mg 12.5 mg PO DAILY 07/25/24 07/25/24 History
tablet,extended release 24 hr
pioglitazone 15 mg tablet 15 mg PO DAILY 07/25/24 07/25/24 History
semaglutide 7 mg tablet (Rybelsus) 7 mg PO DAILY 07/25/24 07/25/24 History
tafamidis meglumine 20 mg capsule 80 mg PO DAILY 07/25/24 07/25/24 History
(Vyndaqel)
zinc acetate 50 mg (zinc) capsule 50 mg PO DAILY 07/25/24 07/25/24 History
Review of Systems
-
History Source: Patient
All other systems: Negative unless noted
Physical Exam
Vital Signs
Temp Pulse Resp BP Pulse Ox
98.5 F 120 18 124/62 96
07/26/24 11:10 07/26/24 11:10 07/26/24 11:10 07/26/24 11:10 07/26/24 11:10
GEN: No distress, awake, Ox3, sitting in bed
HEENT: supple, anicteric, mmm
LUNGS: CTA, no wheezes/rales
CV: Irregularly irregular, tachycardic, S1/S2, murmur, rub or gallop
ABD: soft, BS+, NT/ND
EXT: No edema, clubbing or cyanosis
NEURO: Gross non-focal
SKIN: No rash, warm, dry, pink
Lab Results
07/26/24 05:31
07/26/24 05:31
Impression / Plan
-
PCP: Dale Carias
Tobacco Grader: Dr. Virginia Rodriguez
Impression:
Presented 07/25/2024 with E. coli bacteremia
UTI
Hypovolemia
Hyponatremia
Atrial fibrillation with rapid ventricular response
Presyncope
Thrombocytopenia
Hyponatremia
Abnormal LFTs
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
Cardiomyopathy
Paroxysmal atrial fibrillation on Eliquis
Hypothyroidism
H/O tachybradycardia syndrome
Status post Medtronic dual-chamber pacemaker
Bilateral carotid artery stenosis
Hypertension
Dyslipidemia
NIDDM
CKD stage III
Carpal tunnel syndrome
Peripheral neuropathy
Spinal stenosis
H/O cerebral intracranial aneurysm
Echo 03/01/2024 with EF 60 to 65%. Global longitudinal strain -18.3%. Normal RV.� Trace MR.� Mild aortic valve stenosis with peak/mean gradient 17/8 mmHg. No AI.� Normal tricuspid valve right heart pressures could not be determine
Plan:
Presented 07/25/2024 with E. coli bacteremia after being seen in emergency department 07/24/2024 for fevers and chills with positive blood cultures 24 hours later
- Continue IV antibiotics per primary service, currently getting ceftriaxone with pending urine culture sensitivity
Paroxysmal atrial fibrillation
- Patient has history of paroxysmal atrial fibrillation on chronic anticoagulation with Eliquis
- Interrogation of [employer] pacemaker 07/24/2024 shows increasing A-fib burden which was noted to be 12% on interrogation. Previously was 2.9-3%. Possibly increase in A-fib burden may be related to bacteremia.
- Continue rate control and hopefully patient will spontaneously convert to sinus rhythm with treatment of bacteremia
- Increase Toprol to 25 mg twice a day with hold parameters
- Hemoglobin stable 11.7
- Replete electrolytes, was given IV potassium and magnesium 07/25/2024
History of wild-typet ransthyretin-related (ATTR) amyloidosis
-Continue Tafamidis
Sick sinus syndrome
- Status post dual-chamber Medtronic pacemaker. Device was interrogated via [employer] 07/24/2024. Patient continues to have intermittent pacing and is not pacemaker dependent
- A-fib burden has increased over the last 4 weeks. Previous burden 2.9 to 3%, now 12%
- Increase Toprol as noted above
- Patient is scheduled for generator change on 08/23/2024 as she has 2 months left to V[facility]
Abnormal LFTs would consider holding atorvastatin. Patient does complain of some intermittent nausea. Abdominal ultrasound 07/24/2024 showed mild diffuse liver disease with no evidence of biliary obstruction and previous cholecystectomy.
HPI 07/26/2024:
Patient is a pleasant 83-year-old female with past medical history of carotid artery disease, sick sinus syndrome status post Medtronic dual-chamber pacemaker, paroxysmal antral fibrillation on chronic anticoagulation with Eliquis, hypertension,
hyperlipidemia, cardiac amyloidosis (wild-type ATTR) maintained on Tafamidis, peripheral neuropathy, spinal stenosis cerebral aneurysm with prior craniotomy. Patient was seen in emergency department 07/24/2024 with fever, chills, rigors and near
syncopal episode. [employer] pacemaker interrogation done while patient was in emergency department which showed appropriate function. Patient did have brief episode of atrial fibrillation with rapid ventricular response on afternoon of
07/25/2023. She was found to have UTI/early pyelonephritis and was provided IV antibiotics in the ED and discharged home on oral antibiotics. Blood cultures were drawn and grew out E. coli after 24 hours prompting patient to present back to emergency
department/hospital for treatment. Blood cultures repeated in emergency department on 07/25/2024 are pending. Cardiology being asked to see patient as she was found to be in atrial fibrillation with rapid ventricular response.
Data Reviewed
-
EKG: Report Reviewed by me, Discussed with Physician and Discussed with Patient
Radiology: Report Reviewed by me, Discussed with Physician and Discussed with Patient
Ultrasound: Report Reviewed by me, Discussed with Physician and Discussed with Patient
Labs: Labs Reviewed by me and Discussed with Physician
Old Records: Reviewed
[2024-07-26] MEDS: NOVOLOG FLEXPEN-MODERATE RESISTANCE 3 UNITS SC (12:54)
[2024-07-26] MEDS: NON-FORMULARY ITEM 80 MG PO (12:56)
[2024-07-26] MEDS: FLUSH (NSS) 1 FLUSH IV ×4 (14:20→23:50)
--- NOTE | 2024-07-26 14:21 | W.PN.HOSP.TC ---
Addendum entered and electronically signed by Paul Bridges DO 07/26/24 15:51:
Mild pancytopenia likely related to bacteremia, mild, will monitor for resolution with ongoing treatment.
Original Note:
Today's Communication/Plan
-
Assessment / Plan
Assessment / Plan
General: No Apparent Distress, Comfortable and Conversant
HEENT: NormoCephalic, Moist mucous membranes, Atraumatic
Respiratory: Clear and Non Labored Respirations
Cardiac: Irregular rhythm, heart rate 120s
GI: Soft, Non Tender, Non Distended and Normal Bowel Sounds
Musculoskeletal: No Edema, no deformity
Skin: Warm and dry
: NO Hankins
Neuro: Awake, Alert, Nonfocal/grossly intact
Psych: Calm and Intact Judgment/Insight
Ms. Kitchen is an 83-year-old female with a medical history of cardiac amyloidosis (on tafamidis), paroxysmal A-fib (on Eliquis), sick sinus syndrome (PPM), bilateral carotid artery stenosis, CKD stage III, NIDDM, gastritis and esophagitis,
hypertension, and cerebral artery aneurysm (status post craniotomy 1990) who presented after being called back to the hospital for a blood culture positive for E. coli. She had been treated in the ED on 07/24 for UTI and discharged to home on oral
cefdinir. However blood cultures returned positive for E. coli and so she has now been admitted for treatment of bacteremia. She had been feeling generalized weakness prior to her ED visit on 07/24 but has been feeling better since that time after
being started on antibiotics.
E. coli bacteremia:
- Continue antibiotic treatment with IV ceftriaxone 2 g daily
- Follow-up sensitivities from 07/24 culture
- Repeat cultures from 07/25 negative so far, monitor until final cultures negative
Paroxysmal A-fib:
-Has been tachycardic overnight with heart rate up to the 140s
-Cardiology following, increased A-fib burden on [employer] pacemaker interrogation possibly elevated due to bacteremia
- Increased metoprolol succinate to 25 mg twice daily
- Continue anticoagulation with Eliquis
Hyponatremia:
- Mild, likely hypovolemic in the setting of bacteremia, now resolved
- Continue resuscitative fluids
- Monitor
Transaminitis:
- Mild
- Possibly related to long-term statin use
- Monitor
Abdominal aortic aneurysm:
- Renal ultrasound shows 2.3 cm fusiform aneurysm in the abdominal aorta
- Ongoing outpatient monitoring
Cardiac amyloidosis:
- Continue home tafamidis
CKD stage III:
- Appears at baseline renal function
- Monitor
CODE STATUS: Full code
Anticipated Discharge: 24 - 48 hours
Subjective/Interval History
-
Date of Service: July 26, 2024
Patient was seen and examined at bedside this morning. Has been experiencing palpitations overnight. Otherwise comfortable and meeting breakfast.
Objective Data
-
Labs:
Laboratory Results
07/26/24
05:31
WBC 4.1 L
Hgb 11.7 L
Hct 33.7 L
Plt Count 73 L
Sodium 137
Potassium 3.8
Chloride 111 H
Carbon Dioxide 17 L
BUN 32 H
Creatinine 1.1 H
Glucose 131 H
Calcium 8.6
Vital Signs:
Vital Signs
Temp Pulse Resp BP Pulse Ox
98.5 F 120 18 124/62 96
07/26/24 11:10 07/26/24 12:55 07/26/24 11:10 07/26/24 12:55 07/26/24 11:10
I&O
07/25/24 07/26/24 07/27/24
06:59 06:59 06:59
Intake Total 1300 / 1300
Balance 1300 / 1300
Review of Systems
-
History Source: Patient
All other systems: Reviewed and negative
Cardiac: Reports Palpitations
Physical Exam
-
General: No Apparent Distress
[2024-07-26] MEDS: ROCEPHIN 2000 MG IV (14:33)
[2024-07-26] MEDS: STERILE WATER FOR INJECTION 20 ML IV (14:34)
[2024-07-26 15:15] VITALS: BP 92/57
--- NOTE | 2024-07-26 15:35 | PN.CDI ---
CDI
- -
CDI:
Physician Documentation Request
Admit Date: 07/25/24 16:38
Dear Doctor Yuliana,
Please review the following and provide your response in the progress notes.
Clinical Indicators:
PN, 07/26
#...treated in the ED on 07/24 for UTI and discharged to home on oral cefdinir.
#...However blood cultures returned positive for E. coli and
#...so she has now been admitted for treatment of bacteremia.
#E. coli bacteremia:
#...- Continue antibiotic treatment with IV ceftriaxone 2 g daily
Laboratory Tests
07/26/24
05:31
WBC 4.1 L
RBC 3.72 L
Plt Count 73 L
Based on the above and your clinical assessment, please clarify the appropriate diagnosis, if significant, that supports the above abnormalities and additional evaluation, monitoring and/or treatment rendered:
Drug induced pancytopenia
Pancytopenia
Other (please specify)
Use of terms such as suspected, likely, concern for, or probable (associated with a specific diagnosis that is being evaluated, monitored, or treated as if it exists) are acceptable and can be coded in the inpatient setting, when documented at the
time of discharge.
Thank you,
Michelle Alberto RN BSN CCDS
CDI Specialist
Please contact via tiger text
Please use your independent medical judgment in providing your response.
--- NOTE | 2024-07-26 16:12 | CM ---
Alert awake oriented patient who lives alone in a 2 story home with 4 steps to enter and 15 steps to bed/bathroom. She is independent in activates of daily living.She does drive .She used a walker some time.
No VN in past . No SNF hx
Pharmacy [facility]
PCP Dr Dale Carias
PLAN Home with no needs
[2024-07-26 16:36] LABS: Glucose - Point of Care 179 mg/dl (70-99)
--- NOTE | 2024-07-26 16:49 | PTCARENOTE ---
Addendum entered by Melonie Ramirez RN 07/26/24 16:56:
Addendum to prior note: IVF's RL @ 100 ml/hr infusing via Lt forearm site without sx of infiltration.
Original Note:
Pt AAO x3, VILLATORO well, OOB to BR with minimal assistance; elizabeth well, no c/o weakness/dizziness. VSS. Telemetry:A fib to 130's. On room air- pulse ox96%, no SOB noted. Abd soft, rounded, elizabeth PO well. Voiding in BR without difficulty. Resting in bed
at present, no c/o. Will continue to monitor.
[2024-07-26] MEDS: NOVOLOG FLEXPEN-MODERATE RESISTANCE 1 UNITS SC (17:43)
[2024-07-26 19:00] VITALS: BP 111/74
[2024-07-26] MEDS: PACERONE 200 MG PO (20:02)
[2024-07-26] MEDS: TOPROL XL 25 MG PO (20:02)
[2024-07-26 23:30] VITALS: BP 117/62
[2024-07-26] MEDS: LIPITOR 40 MG PO (23:45)
[2024-07-27 03:40] VITALS: BP 133/71
[2024-07-27] MEDS: LR 1000 IV (04:39)
[2024-07-27 06:00] VITALS: BMI 27.2
[2024-07-27] MEDS: SYNTHROID 50 MCG PO (06:03)
[2024-07-27 06:27] LABS: Glucose - Point of Care 186 mg/dl (70-99)
[2024-07-27 06:43] LABS: ALT (SGPT) 81 U/L (0-35); AST (SGOT) 85 U/L (14-36); Albumin 2.7 g/dl (3.5-5.0); Alkaline Phosphatase 110 U/L (38-126); Blood Urea Nitrogen 31 mg/dl (7-17); Calcium 8.2 mg/dl (8.4-10.2); Carbon Dioxide 21 mmol/L (22-30); Chloride 110 mmol/L (98-107); Estimated Creatinine Clearance 41 ml/min; Glucose 154 mg/dl (70-99); Hematocrit 32.7 % (37.0-47.0); Hemoglobin 11.3 g/dL (12.0-16.0); Mean Corp Hgb Conc. 34.6 g/dL (33.0-37.0); Mean Corpuscular Hgb 31.5 pg (27.0-31.0); Mean Corpuscular Volume 91.1 fL (81.0-99.0); Platelet Count 81 10^3/uL (130-400); Potassium 3.7 mmol/L (3.5-5.1); Red Blood Cell Count 3.59 10^6/uL (4.20-5.40); Red Cell Dist. Width 13.2 % (11.5-14.5); Sodium 137 mmol/L (135-145); Total Bilirubin 0.6 mg/dl (0.2-1.3); Total Protein 5.1 g/dl (6.3-8.2); White Blood Cell Count 4.1 10^3/uL (4.8-10.8); eGFR 56.25
[2024-07-27 07:47] LABS: % Basophils 0.2 % (0-2); % Eosinophils 0.7 % (0-6); % Immature Granulocytes 0.5 % (0-0.5); % Lymphocytes 14.4 % (20.5-51.1); % Monocytes 17.6 % (1.7-9.3); % Neutrophils 66.6 % (42.2-75.2); Absolute Lymphocytes 0.6 10^3/uL (1.2-3.4); Absolute Monocytes 0.7 10^3/uL (0.1-0.6); Absolute Neutrophils 2.7 10^3/uL (1.4-6.5); Nucleated Red Blood Cells % 0 %
[2024-07-27 07:58] VITALS: BP 131/76
[2024-07-27 08:53] LABS: Glucose - Point of Care 149 mg/dl (70-99)
[2024-07-27] MEDS: NOVOLOG FLEXPEN-MODERATE RESISTANCE SC (09:17)
[2024-07-27] MEDS: NON-FORMULARY ITEM 80 MG PO (09:43)
[2024-07-27] MEDS: PACERONE 200 MG PO (09:43)
[2024-07-27] MEDS: FARXIGA 10 MG PO (09:44)
[2024-07-27] MEDS: ACTOS 15 MG PO (09:44)
[2024-07-27] MEDS: ZINC 50 MG PO (09:44)
[2024-07-27] MEDS: VITAMIN D3 (cholecalciferol) 50 MCG PO (09:44)
[2024-07-27] MEDS: TOPROL XL 25 MG PO (09:44)
[2024-07-27] MEDS: ELIQUIS 5 MG PO (09:44)
--- NOTE | 2024-07-27 11:50 | W.PN.CARDCBS ---
Addendum entered and electronically signed by Juaquin Bagley MD 07/27/24 12:35:
I saw and examined the patient.
The CUTTER [employer]RAKE [employer]ING or PA's note was reviewed and I agree with the note.
Comment: General: Well developed, well nourished in NAD.
Neck: Supple, no JVD, HJR, carotids +2 B/L, no bruits bilaterally.
Heart: Non displaced PMI, RRR, no murmurs, No S3, S4, no rubs.
Lungs: Scattered rhonchi
Extremities: No clubbing, cyanosis or edema bilaterally.
Neuro: Grossly nonfocal, awake, alert and oriented x3.
She remains in A-fib. Continue amiodarone 200 mg p.o. twice daily.
Might consider outpatient cardioversion perhaps at the time of generator change scheduled for 08/23 if she remains in A-fib.
Original Note:
Today's Communication / Plan
-
continue amiodarone 200mg BID for 30 days then decrease to 200mg daily
continue treatment of e.coli bacteremia
generator change scheduled for 08/23
will arrange OP cardiac follow up
Impression / Plan
-
PCP: Dale Carias
Online Marketing Manager: Dr. Virginia Rodriguez
Impression:
Presented 07/25/2024 with E. coli bacteremia
UTI
Hypovolemia
Hyponatremia
Atrial fibrillation with rapid ventricular response
Presyncope
Thrombocytopenia
Hyponatremia
Abnormal LFTs
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
Cardiomyopathy
Paroxysmal atrial fibrillation on Eliquis
Hypothyroidism
H/O tachybradycardia syndrome
Status post Medtronic dual-chamber pacemaker
Bilateral carotid artery stenosis
Hypertension
Dyslipidemia
NIDDM
CKD stage III
Carpal tunnel syndrome
Peripheral neuropathy
Spinal stenosis
H/O cerebral intracranial aneurysm
Echo 03/01/2024 with EF 60 to 65%. Global longitudinal strain -18.3%. Normal RV.� Trace MR.� Mild aortic valve stenosis with peak/mean gradient 17/8 mmHg. No AI.� Normal tricuspid valve right heart pressures could not be determine
Plan:
- Patient presented with fevers and chills and is being treated for UTI/E. coli bacteremia. Awaiting urine culture for sensitivity. Continue antibiotics per primary service
- She was noted to be in atrial fibrillation on arrival. symptomatic. By interrogation of Medtronic pacemaker on 07/24, A-fib burden has increased from 3% to approximately 12%. Toprol was increased to 25 mg twice daily and amiodarone 200 mg twice
daily was added. Plan to continue amiodarone 200 mg twice daily for 1 month then decrease to 200 mg daily. will discuss further options including ablation with EP as OP.
- She has Medtronic dual-chamber pacemaker with 2 months left to [facility]. She is planned for generator change on 08/23/2024
- She has degree of chronic shortness of breath due to her ATTR amyloidosis. Continue tafamidis
- Outpatient cardiac follow-up arranged
HPI 07/26/2024:
Patient is a pleasant 83-year-old female with past medical history of carotid artery disease, sick sinus syndrome status post Medtronic dual-chamber pacemaker, paroxysmal antral fibrillation on chronic anticoagulation with Eliquis, hypertension,
hyperlipidemia, cardiac amyloidosis (wild-type ATTR) maintained on Tafamidis, peripheral neuropathy, spinal stenosis cerebral aneurysm with prior craniotomy. Patient was seen in emergency department 07/24/2024 with fever, chills, rigors and near
syncopal episode. [facility] express pacemaker interrogation done while patient was in emergency department which showed appropriate function. Patient did have brief episode of atrial fibrillation with rapid ventricular response on afternoon of
07/25/2023. She was found to have UTI/early pyelonephritis and was provided IV antibiotics in the ED and discharged home on oral antibiotics. Blood cultures were drawn and grew out E. coli after 24 hours prompting patient to present back to emergency
department/hospital for treatment. Blood cultures repeated in emergency department on 07/25/2024 are pending. Cardiology being asked to see patient as she was found to be in atrial fibrillation with rapid ventricular response.
Progress Note - Online Marketing Manager
Subjective
Date of Service: July 27, 2024
no issues overnight. reports SOB at baseline
Objective
Labs:
07/27/24 05:42
07/27/24 05:42
Labs
Hgb 11.3 g/dL (12.0-16.0) L 07/27/24 05:42
Hct 32.7 % (37.0-47.0) L 07/27/24 05:42
Plt Count 81 10^3/uL (130-400) L 07/27/24 05:42
Sodium 137 mmol/L (135-145) 07/27/24 05:42
Potassium 3.7 mmol/L (3.5-5.1) 07/27/24 05:42
BUN 31 mg/dl (7-17) H 07/27/24 05:42
Creatinine 1.0 mg/dL (0.6-1.0) 07/27/24 05:42
Glucose 154 mg/dl (70-99) H 07/27/24 05:42
Vital Signs and I&O:
Vital Signs
Temp Pulse Resp BP Pulse Ox
98 F 82 18 131/76 98
07/27/24 07:58 07/27/24 07:58 07/27/24 07:58 07/27/24 07:58 07/27/24 07:58
Vital Signs
Temp Pulse Resp BP Pulse Ox
98 F 82 18 131/76 98
07/27/24 07:58 07/27/24 07:58 07/27/24 07:58 07/27/24 07:58 07/27/24 07:58
Intake & Output
07/25/24 07/26/24 07/27/24 07/28/24
07:59 07:59 07:59 07:59
Intake Total 1300 / 1300 2069
Balance 1299 / 1299
Physical Exam
Physical Exam
GEN: No distress, awake, alert, oriented x3
HEENT: supple, anicteric, mmm, eomi
LUNGS: Few crackles at B/L bases, no wheezes
CV: Irreg, S1/S2, no murmur
ABD: soft, BS+, NT/ND
EXT: No cyanosis, clubbing, edema
NEURO: Gross non-focal
SKIN: Warm, pink, dry. No rash
[2024-07-27 12:11] VITALS: BP 121/60
[2024-07-27 12:36] LABS: Glucose - Point of Care 237 mg/dl (70-99)
[2024-07-27] MEDS: NOVOLOG FLEXPEN-MODERATE RESISTANCE 3 UNITS SC (12:37)
[2024-07-27] MEDS: ROCEPHIN 2000 MG IV (13:50)
[2024-07-27] MEDS: FLUSH (NSS) 1 FLUSH IV ×2 (13:50→14:02)
[2024-07-27] MEDS: STERILE WATER FOR INJECTION 20 ML IV (13:51)
--- NOTE | 2024-07-27 14:13 | W.DCSUMMARY ---
Discharge Summary
Discharge Data
Date of Admission: 07/25/24
Date of Discharge: 07/27/24
-
Pending Results: No
Hospital Course
Ms. Kitchen is an 83-year-old female with a medical history of cardiac amyloidosis (on tafamidis), paroxysmal A-fib (on Eliquis), sick sinus syndrome (PPM), bilateral carotid artery stenosis, CKD stage III, NIDDM, gastritis and esophagitis,
hypertension, and cerebral artery aneurysm (status post craniotomy 1990) who presented after being called back to the hospital for a blood culture positive for E. coli. She had been treated in the ED on 07/24 for UTI and discharged to home on oral
cefdinir. However blood cultures returned positive for E. coli and so she was admitted for treatment of bacteremia. She had been feeling generalized weakness prior to her ED visit on 07/24 but has been feeling better since being started on
antibiotics.
She continued to improve during her hospitalization. However, she did develop A-fib with RVR on hospital day 1. She was evaluated by cardiology and started on an oral amiodarone load with improvement in her heart rate, but did remain in A-fib.
She will continue amiodarone 200 mg twice daily for 30 days then transition to 200 mg daily thereafter. She has an upcoming appointment on 08/23/2024 for scheduled pacemaker generator change, at which point could consider electrical cardioversion if
still indicated.
Her repeat blood cultures remain negative. Her original positive blood cultures showed sensitivity to Augmentin, third-generation cephalosporins, and Bactrim. She will be discharged on cefuroxime for an additional 8 days to complete a total 10-day
course of antibiotics. It is not necessary to repeat blood cultures after antibiotic course for gram-negative bacteremia unless she has recurrent symptoms. Repeat blood cultures have remained negative to date. She should have repeat blood work
after completing her course of antibiotics to monitor for improvement of her pancytopenia which is likely a reaction to her current infection. Her repeat blood work should also include a comprehensive metabolic panel to monitor renal function and
liver function, both of which were mildly abnormal but stable. She will be continued on her home medications including atorvastatin for now but should discuss these lab findings with her primary care physician after repeat blood work has been
completed.
At time of hospital discharge she was medically stable. She will be given a prescription for cefuroxime for treatment of her E. coli bacteremia and a prescription for amiodarone for treatment of her A-fib with rapid heart rate. She will need
follow-up with her primary care physician and with cardiology after hospital discharge.
Medication changes:
- Take cefuroxime 500 mg twice daily for 7 days for treatment of E. coli bacteremia
- Take amiodarone 200 mg twice daily for 30 days then switch to 200 mg daily thereafter for treatment of A-fib
- Take increased dose of metoprolol succinate 25 mg twice daily for heart rate control also for A-fib
General: No Apparent Distress, Comfortable and Conversant
HEENT: NormoCephalic, Moist mucous membranes, Atraumatic
Respiratory: Clear and Non Labored Respirations
Cardiac: Irregular rhythm, heart rate 80s
GI: Soft, Non Tender, Non Distended and Normal Bowel Sounds
Musculoskeletal: No Edema, no deformity
Skin: Warm and dry
: NO Hankins
Neuro: Awake, Alert, Nonfocal/grossly intact
Psych: Calm and Intact Judgment/Insight
Discharge Plan
-
Patient Disposition: Home (Routine Discharge)
Discharge Diagnosis/Procedures: E. coli bacteremia
Diet: Diabetic, Carb Controlled
Activity: As tolerated
Blood Work: Blood work: Complete blood count and comprehensive metabolic panel in 1 week
Activity Restrictions/Additional Instructions:
Ms. Kitchen is an 83-year-old female with a medical history of cardiac amyloidosis (on tafamidis), paroxysmal A-fib (on Eliquis), sick sinus syndrome (PPM), bilateral carotid artery stenosis, CKD stage III, NIDDM, gastritis and esophagitis,
hypertension, and cerebral artery aneurysm (status post craniotomy 1990) who presented after being called back to the hospital for a blood culture positive for E. coli. She had been treated in the ED on 07/24 for UTI and discharged to home on oral
cefdinir. However blood cultures returned positive for E. coli and so she was admitted for treatment of bacteremia. She had been feeling generalized weakness prior to her ED visit on 07/24 but has been feeling better since being started on
antibiotics.
She continued to improve during her hospitalization. However, she did develop A-fib with RVR on hospital day 1. She was evaluated by cardiology and started on an oral amiodarone load with improvement in her heart rate, but did remain in A-fib.
She will continue amiodarone 200 mg twice daily for 30 days then transition to 200 mg daily thereafter. She has an upcoming appointment on 08/23/2024 for scheduled pacemaker generator change, at which point could consider electrical cardioversion if
still indicated.
Her repeat blood cultures remain negative. Her original positive blood cultures showed sensitivity to Augmentin, third-generation cephalosporins, and Bactrim. She will be discharged on cefuroxime for an additional 8 days to complete a total 10-day
course of antibiotics. It is not necessary to repeat blood cultures after antibiotic course for gram-negative bacteremia unless she has recurrent symptoms. Repeat blood cultures have remained negative to date. She should have repeat blood work
after completing her course of antibiotics to monitor for improvement of her pancytopenia which is likely a reaction to her current infection. Her repeat blood work should also include a comprehensive metabolic panel to monitor renal function and
liver function, both of which were mildly abnormal but stable. She will be continued on her home medications including atorvastatin for now but should discuss these lab findings with her primary care physician after repeat blood work has been
completed.
At time of hospital discharge she was medically stable. She will be given a prescription for cefuroxime for treatment of her E. coli bacteremia and a prescription for amiodarone for treatment of her A-fib with rapid heart rate. She will need
follow-up with her primary care physician and with cardiology after hospital discharge.
Medication changes:
- Take cefuroxime 500 mg twice daily for 7 days for treatment of E. coli bacteremia
- Take amiodarone 200 mg twice daily for 30 days then switch to 200 mg daily thereafter for treatment of A-fib
- Take increased dose of metoprolol succinate 25 mg twice daily for heart rate control also for A-fib
Referrals:
Hermelinda Roper PA-C [Specified Professional Personl] - 08/16/24 2:00 pm (You have a cardiology follow up appointment at the [place] office with Dr. Coleman's physician broker assistant, Hermelinda. Please call with questions. )
UNKNOWN - PT DOES,NOT KNOW [Family Provider] -
Additional Discharge Medication Instructions: continue amiodarone 200mg twice daily for 30 days then decrease to 200mg daily!
Prescriptions:
New
amiodarone 200 mg Tablet
200 mg PO BID 30 Days Qty: 60 0RF
metoprolol succinate 25 mg Tablet Extended Release 24 Hr
25 mg PO BID 30 Days Qty: 60 0RF
amiodarone 200 mg tablet
200 mg PO DAILY Qty: 30 0RF
Rx Instructions:
Start 200 mg daily on 08/24/2024, prior to that take 200 mg twice daily
cefuroxime axetil 500 mg tablet
500 mg PO BID Qty: 7 0RF
Continued
pioglitazone 15 mg Tablet
15 mg PO DAILY
atorvastatin 40 mg Tablet
40 mg PO HS
zinc acetate 50 mg (zinc) Capsule
50 mg PO DAILY
levothyroxine 50 mcg Tablet
50 mcg PO DAILY
calcium carbonate 500 mg calcium (1,250 mg) Tablet,Chewable
1,000 mg PO DAILYPRN PRN (Reason: upset stomach)
cholecalciferol (vitamin D3) 50 mcg (2,000 unit) Tablet
50 mcg PO DAILY
Eliquis 5 mg Tablet
5 mg PO BID
dapagliflozin propanediol [Farxiga] 10 mg Tablet
10 mg PO DAILY
Vyndaqel 20 mg Capsule
80 mg PO DAILY
Rybelsus 7 mg Tablet
7 mg PO DAILY
Discontinued
metoprolol succinate 25 mg Tablet Extended Release 24 Hr
12.5 mg PO DAILY
Discharge Orders:
Discharge Patient (As Directed); Ordered 07/27/24
Ordered By: Paul Bridges
Discharge Date and Time
Print Language: CUBAN
[2024-07-27 15:42] VITALS: BP 107/59
--- NOTE | 2024-07-27 16:15 | CM ---
MD entered order for discharge.
Spoke with pt she said she was ready for discharge today.
She said sister Stefania will drive her home.
Offered VN she declined need.
PLAN Home no needs
== END 2024-07-27 16:58 | disposition home or self-care (01) | DRG 690 ==
LOC: 4 EAST ACU 16:38
PROVIDERS: ADMITTING PHYSICIAN Internal Medicine; ATTENDING PHYSICIAN Internal Medicine; CONSULT PHYSICIAN Internal Medicine Cardiovascular Disease; EMERGENCY PHYSICIAN Emergency Medicine
DX: N30.90 Cystitis, unspecified without hematuria (principal); E87.1 Hypo-osmolality and hyponatremia; D61.818 Other pancytopenia; E85.4 Organ-limited amyloidosis; I43 Cardiomyopathy in diseases classified elsewhere; R78.81 Bacteremia; I48.0 Paroxysmal atrial fibrillation; B96.20 Unspecified Escherichia coli [E. coli] as the cause of diseases classified elsewhere; E86.1 Hypovolemia; E03.9 Hypothyroidism, unspecified; I12.9 Hypertensive chronic kidney disease with stage 1 through stage 4 chronic kidney disease, or unspecified chronic kidney disease; E11.22 Type 2 diabetes mellitus with diabetic chronic kidney disease; N18.30 Chronic kidney disease, stage 3 unspecified; M81.0 Age-related osteoporosis without current pathological fracture; Z60.2 Problems related to living alone; E11.40 Type 2 diabetes mellitus with diabetic neuropathy, unspecified; Z79.01 Long term (current) use of anticoagulants; Z79.899 Other long term (current) drug therapy; Z87.891 Personal history of nicotine dependence
CPT/HCPCS: 80048; 80053; 82962; 83605; 83735; 85025; 87040; 93005; 96374; 99285

== ENCOUNTER → 2024-08-03 09:45 | Outpatient (REF) | payer MEDICARE, OTHER, SELFPAY ==
[2024-08-03 10:38] LABS: % Basophils 0.5 % (0-2); % Eosinophils 0.9 % (0-6); % Immature Granulocytes 1.4 % (0-0.5); % Lymphocytes 16.5 % (20.5-51.1); % Monocytes 8.1 % (1.7-9.3); % Neutrophils 72.6 % (42.2-75.2); Absolute Eosinophils 0.1 10^3/uL (0-0.7); Absolute Immature Granulocytes 0.1 10^3/uL (0-0.05); Absolute Lymphocytes 0.9 10^3/uL (1.2-3.4); Absolute Monocytes 0.5 10^3/uL (0.1-0.6); Absolute Neutrophils 4.1 10^3/uL (1.4-6.5); Hematocrit 37.5 % (37.0-47.0); Hemoglobin 12.5 g/dL (12.0-16.0); Mean Corp Hgb Conc. 33.3 g/dL (33.0-37.0); Mean Corpuscular Hgb 31.6 pg (27.0-31.0); Mean Corpuscular Volume 94.9 fL (81.0-99.0); Mean Platelet Volume 9.9 fL (7.4-10.4); Nucleated Red Blood Cells % 0 %; Platelet Count 192 10^3/uL (130-400); Red Blood Cell Count 3.95 10^6/uL (4.20-5.40); Red Cell Dist. Width 13.7 % (11.5-14.5); White Blood Cell Count 5.6 10^3/uL (4.8-10.8)
[2024-08-03 10:45] LABS: INR 1.47
[2024-08-03 11:38] LABS: ALT (SGPT) 35 U/L (0-35); AST (SGOT) 30 U/L (14-36); Albumin 3.9 g/dl (3.5-5.0); Alkaline Phosphatase 96 U/L (38-126); Blood Urea Nitrogen 30 mg/dl (7-17); Calcium 9.3 mg/dl (8.4-10.2); Carbon Dioxide 24 mmol/L (22-30); Chloride 103 mmol/L (98-107); Glucose 270 mg/dl (70-99); Magnesium 1.2 mg/dl (1.6-2.3); Potassium 4.5 mmol/L (3.5-5.1); Sodium 138 mmol/L (135-145); Total Bilirubin 0.8 mg/dl (0.2-1.3); Total Protein 6.4 g/dl (6.3-8.2); eGFR 41.06
== END ==
LOC: SDSPAT 09:45
PROVIDERS: ATTENDING PHYSICIAN Internal Medicine Cardiovascular Disease; FAMILY PHYSICIAN Family Medicine; OTHER PHYSICIAN Internal Medicine Cardiovascular Disease
DX: I49.5 Sick sinus syndrome (principal)
CPT/HCPCS: 80053; 83735; 85025; 85610; 93005

== ENCOUNTER 2024-08-23 11:44 | Day surgery (SDC) | payer MEDICARE, OTHER, SELFPAY ==
[2024-08-03 10:13] VITALS: BMI 26.5
[2024-08-23 11:59] VITALS: BMI 26.2
[2024-08-23 12:48] VITALS: BP 139/65
[2024-08-23 13:07] LABS: Glucose - Point of Care 92 mg/dl (70-99)
--- NOTE | 2024-08-23 16:58 | ITS.CL.PACE ---
Cruise Agent - Pacemaker Implant
Pacemaker Implant
Procedure Report:
PACEMAKER GENERATOR CHANGE
Date of Procedure: August 23, 2024
Primary Care Provider: Dr Dale Dudley
Primary health physicist: Dr Virginia Rodriguez
PROCEDURES:
1. Removal of dual chamber PPM generator at [facility]
2. Implant of new dual chamber PPM generator
INDICATION FOR PROCEDURE:
1. PPM generator at [facility]
2. Non-reversible symptomatic bradycardia due to sinus node dysfunction.
Additional medical history includes paroxysmal atrial fibrillation, ATTR cardiac amyloidosis, peripheral arterial disease (carotid arterial disease), type 2 diabetes, chronic renal insufficiency with baseline creatinine of approximately 1.3 and GFR
of 41, orthostatic hypotension
The patient was prepped and draped in sterile fashion. Lidocaine with epi was used for local anesthesia. An incision was made along the previous incision and the device and leads were carefully dissected from the pocket. Hemostasis was obtained
with electrocautery. The leads were from the device header and tested using an external analyzer. The pocket was liberally irrigated with antibiotic solution. Once testing (see below) showed adequate and stable function, the leads were
connected to the generator header and the leads and generator were placed within the pocket. The pocket was closed in the typical fashion.
EXPLANTED PPM GENERATOR:
Medtronic
IMPLANTED PPM GENERATOR:
Medtronic [id number], SN [id number]
RETAINED LEADS:
Existing RA lead: Medtronic [id number]
Existing RV lead: Medtronic [id number]
DEVICE TESTING:
Sensing: RA 3.6 mV, RV 14 mV
Capture: RA 0.5 V @ 0.4ms, RV 0.5 V @ 0.4ms
Ohms: RA 513, RV 817 (unipolar)
FINAL PROGRAMMING
Harry Pacing: DDDR (MVP Mode) 60-130 ppm
COMPLICATIONS:
None
CONCLUSIONS:
1. Successful explant of dual chamber permanent pacemaker
2. Successful implant of dual chamber permanent pacemaker
RECOMMENDATIONS:
In-Office wound check in 7-10 days.
Resume Eliquis anticoagulation starting tomorrow evening
Copy to:
Dr Dale Dudley
Dr Virginia Rodriguez
[2024-08-23 17:01] VITALS: BP 137/47
[2024-08-23 17:06] VITALS: BP 137/47
[2024-08-23 17:16] VITALS: BP 119/41
[2024-08-23 17:30] VITALS: BP 121/44
[2024-08-23 17:45] VITALS: BP 116/41
== END 2024-08-23 17:57 | disposition home or self-care (01) ==
LOC: CATH 11:44
PROVIDERS: ATTENDING PHYSICIAN Internal Medicine Cardiovascular Disease; FAMILY PHYSICIAN Family Medicine; OTHER PHYSICIAN Internal Medicine Cardiovascular Disease
DX: Z45.010 Encounter for checking and testing of cardiac pacemaker pulse generator [battery] (principal); I49.5 Sick sinus syndrome; E03.9 Hypothyroidism, unspecified; E11.22 Type 2 diabetes mellitus with diabetic chronic kidney disease; I12.9 Hypertensive chronic kidney disease with stage 1 through stage 4 chronic kidney disease, or unspecified chronic kidney disease; E78.5 Hyperlipidemia, unspecified; I65.23 Occlusion and stenosis of bilateral carotid arteries; I48.0 Paroxysmal atrial fibrillation; E85.82 Wild-type transthyretin-related (ATTR) amyloidosis; I35.0 Nonrheumatic aortic (valve) stenosis; K21.9 Gastro-esophageal reflux disease without esophagitis; R06.09 Other forms of dyspnea; K44.9 Diaphragmatic hernia without obstruction or gangrene; Z86.0100 Personal history of colon polyps, unspecified; K57.90 Diverticulosis of intestine, part unspecified, without perforation or abscess without bleeding; R42 Dizziness and giddiness; M48.00 Spinal stenosis, site unspecified; I67.1 Cerebral aneurysm, nonruptured; M19.90 Unspecified osteoarthritis, unspecified site; E83.42 Hypomagnesemia; E11.43 Type 2 diabetes mellitus with diabetic autonomic (poly)neuropathy; E11.51 Type 2 diabetes mellitus with diabetic peripheral angiopathy without gangrene; F17.210 Nicotine dependence, cigarettes, uncomplicated; N18.30 Chronic kidney disease, stage 3 unspecified; Z79.01 Long term (current) use of anticoagulants; Z79.84 Long term (current) use of oral hypoglycemic drugs; Z79.890 Hormone replacement therapy; Z87.440 Personal history of urinary (tract) infections; Z79.899 Other long term (current) drug therapy; Z90.721 Acquired absence of ovaries, unilateral; Z90.49 Acquired absence of other specified parts of digestive tract; Z98.890 Other specified postprocedural states
CPT/HCPCS: 33228; 82962; C1785

== ENCOUNTER → 2024-09-23 11:24 | Outpatient (REF) | payer MEDICARE, OTHER, SELFPAY | LOC: WDC 11:24 | PROVIDERS: ATTENDING PHYSICIAN Family Medicine | DX: Z12.31 Encounter for screening mammogram for malignant neoplasm of breast (principal) | CPT/HCPCS: 77063; 77067 ==

== ENCOUNTER → 2025-01-31 10:26 | Outpatient (REF) | payer MEDICARE, OTHER, SELFPAY ==
[2025-01-31 10:57] LABS: Hematocrit 35.0 % (37.0-47.0); Hemoglobin 11.5 g/dL (12.0-16.0); Mean Corp Hgb Conc. 32.9 g/dL (33.0-37.0); Mean Corpuscular Volume 97.5 fL (81.0-99.0); Nucleated Red Blood Cells % 0 %; Platelet Count 140 10^3/uL (130-400); Red Cell Dist. Width 13.7 % (11.5-14.5)
[2025-01-31 11:07] LABS: INR 1.48; PT 18.1 Sec (11.4-14.6)
[2025-01-31 11:11] LABS: ALT (SGPT) 18 U/L (0-35); AST (SGOT) 26 U/L (14-36); Albumin 3.9 g/dl (3.5-5.0); Alkaline Phosphatase 85 U/L (38-126); Blood Urea Nitrogen 33 mg/dl (7-17); Calcium 8.9 mg/dl (8.4-10.2); Carbon Dioxide 22 mmol/L (22-30); Chloride 108 mmol/L (98-107); Glucose 143 mg/dl (70-99); Magnesium 1.2 mg/dl (1.6-2.3); Potassium 3.9 mmol/L (3.5-5.1); Sodium 138 mmol/L (135-145); Total Protein 6.6 g/dl (6.3-8.2); eGFR 37.33
== END ==
LOC: SDSPAT 10:26
PROVIDERS: ATTENDING PHYSICIAN Internal Medicine Cardiovascular Disease; FAMILY PHYSICIAN Family Medicine; OTHER PHYSICIAN Internal Medicine Cardiovascular Disease
DX: I48.0 Paroxysmal atrial fibrillation (principal)
CPT/HCPCS: 36415; 75572; 80053; 83735; 85025; 85610; 86850; 86900; 86901; 93005; Q9967

== ENCOUNTER → 2025-02-07 13:15 | Outpatient (REF) | payer MEDICARE, OTHER, SELFPAY ==
[2025-02-07 14:55] LABS: Blood Urea Nitrogen 28 mg/dl (7-17); Calcium 9.3 mg/dl (8.4-10.2); Carbon Dioxide 25 mmol/L (22-30); Chloride 106 mmol/L (98-107); Glucose 87 mg/dl (70-99); Magnesium 1.8 mg/dl (1.6-2.3); Potassium 4.5 mmol/L (3.5-5.1); Sodium 137 mmol/L (135-145); eGFR 37.33
== END ==
LOC: REG 13:15
PROVIDERS: ATTENDING PHYSICIAN Internal Medicine Cardiovascular Disease; FAMILY PHYSICIAN Family Medicine
DX: R79.0 Abnormal level of blood mineral (principal)
CPT/HCPCS: 36415; 80048; 83735

== ENCOUNTER 2025-02-14 07:57 | Day surgery (SDC) | payer MEDICARE, OTHER, SELFPAY ==
[2025-01-31 13:17] VITALS: BMI 26.9
--- NOTE | 2025-02-02 15:27 | W.PN.UPDATE ---
Update Note
Progress Note Update
Bilateral solid pulmonary nodules with the largest measuring 6 mm--PCP and patient made aware
[2025-02-14] VITALS (10 sets, daily range): BP systolic 143–158; BP diastolic 50–59; BMI 24.6
--- NOTE | 2025-02-14 08:12 | ITS.CL.ABL ---
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
Ablation
Procedure Report:
ELECTROPHYSIOLOGIC STUDY AND POSSIBLE ABLATION
DATE: February 14, 2025
Primary Care Provider: Dr Dale Carias
Primary Director Of Compliance: Dr Virginia Rodriguez
INDICATION:
Symptomatic Atrial Fibrillation.
Paroxysmal
HISTORY: See H and P.
Symptomatic AF, poorly controlled with attempted medical therapy.
Her medical history is complicated by wild-type change duration related (ATTR) amyloidosis currently treated with tafamidis fo cardiac involvement.
HAS-BLED: 2
Age
Abnormal Renal Function
CHADSVASc: 4 + ATTR cardiac amyloidosis which adds considerable thromboembolic risk
Age
DM
F Gender
PRESENTING RHYTHM:SR
HISTORY: See H and P.
Symptomatic AF, poorly controlled with attempted medical therapy.
ANTICOAGULATION: Apixaban 5 mg twice daily
'TIME-OUT': called and confirmed.
SEDATION/ANESTHESIA: provided via the anesthesia department using general anesthesia.
PROCEDURE:
Ultrasound Guidance with real-time visualization of needle insertion and vessel patency performed by mn for femoral venous Vascular Access.
Under real-time US guidance, the needle was advanced with negative pressure into the vein. The needle was seen entering the vessel lumen with a good return of dark red flow, the syringe was removed, non-pulsatile, dark red blood low was noted and
the wire was passed without difficulty, then the needle was removed. US confirmed the wire was in the vein, not going into an artery,
Images were taken and saved for the patient's permanent record. Imaging findings typical femoral venous anatomy. Direct visualization of needle puncture into the femoral vein was observed and recorded.
3 sheaths were inserted into the right femoral vein.
10 Fr, 10Fr, 7 Fr. A 10fr sheath was then exchanged for the 16.8 Fr Faradrive deflectable sheath and dilator over a wire.
A decapolar CS catheter was positioned within the CS for mapping and pacing.
The intracardiac ultrasound catheter was positioned in the RA for continuous intracardiac ultrasound imaging.
Heparin bolus and infusion to target ACT at 300 -350 seconds was administered. Transseptal puncture was performed. This entailed advancing a sheath with dilator into the superior vena cava and withdrawing both (monitoring intracardiac ultrasound,
fluoroscopy and tip pressure) with the tip oriented toward the atrial septum. The fossa ovalis was engaged (indicated by sudden displacement of the sheath tip as well as tenting of the fossa seen on intracardiac ultrasound).
The Dialectica transseptal system utilizing VersaCross RF was used. Left atrial catheter position was confirmed by echocardiographic imaging and fluoroscopy followed by RF delivery using the Gezlong system resulting in successful LA access with
pressure monitoring demonstrating LA pressure waveforms (LA mean pressure 2 mm Hg). The Faradrive sheath was advanced over the dilator and positioned in the left atrium.
The Netscape Grid multipolar mapping catheter was initially positioned through the transseptal sheath for high density mapping.
Geometry and voltage mapping was performed using the Westbrook multipolar grid catheter. Ensite-X was utilized for three-dimensional electroanatomical mapping.
A 3-D map was created using Ensite-X in Voxel mode. A 3-D reconstructed CT image was compared to the 3-D Navex map to assist in anatomic evaluation, mapping and ablation.
The Dialectica PFA catheter and system was used for cardiac ablation. Catheter positioning was guided and confirmed using both I.C.E. and fluoroscopy.
Ablation strategy included PVI as well as mapping for extra PV contributors to atrial fibrillation which would also be targeted if present.
High density electroanatomical three-dimensional mapping demonstrated four PVs: LSPV, LIPV, RSPV, RIPV.
After accomplishing pulmonary venous isolation, mapping identified additional areas likely to be extra PV contributors to atrial fibrillation. These areas demonstrated patchy low voltage as well as complex fractionated electrograms. These areas can
be sites for the formation of rotors which can drive and maintain atrial fibrillation. These areas are known to be significant contributors to initiation and perpetuation of atrial fibrillation.
Additional energy applications/additional ablation sets targeted extra PV contributors to atrial fibrillation.
Targets for additional PFA ablation included:
LA posterior wall targeted with pulsed electric field energy isolating the posterior wall of the left atrium
After ablation of the posterior wall, additional targets were addressed:
LA inferior floor
Anterior LA roof
These areas were ablated using pulsed electric field energy eliminating the extra PV contributors to atrial fibrillation.
Post ablation mapping finds entrance and exit block at each of the pulmonary veins, the LA posterior wall and at the additional lines at the anterior roof of the LA as well as Inferior/floor of the LA rendering the sites no longer able to contribute
to atrial fibrillation.
Programmed electrostimulation including burst atrial pacing as well the delivery of decremental extrastimuli down to atrial effective refractory period and no sustained arrhythmias could be induced.
I.C.E. :
Pre-Ablation Post-Ablation
LVEF: 55 % 55 %
WMA: none none
Pericardial effusion: none none
LA Pressure (mmHg) 2 6
COMPLICATIONS:
none
SUMMARY:
- Mapping and ablation to isolate the PVs resulting in electrical isolation of the pulmonary veins
- Additional AF ablation sets X 3 after PVI (LA posterior wall, Inf/floor of the LA posterior wall, anterior LA roof line) resulting in elimination of the targeted extra PV contributors to atrial fibrillation.
- 3-D Electroanatomical Mapping
- Intracardiac Ultrasound
- Ultrasound guidance for vascular access
- Interrogation of the dual-chamber permanent pacemaker and hand study finds normal stable function. Fluoroscopic position of the leads are unchanged.
Post ablation, I discussed today's findings and results with the patient's friend, Stefania.
RECOMMENDATIONS:
- Observe in monitored bed.
- Maintain oral anticoagulation. Need for anticoagulation is lifelong given her known cardiac amyloidosis.
If at any point she does require cardioversion given cardiac amyloid she would need transesophageal echocardiogram despite anticoagulation status prior to any cardioversion.
- Continue amiodarone until I can see her back in the office to reassess.
- Office visit with me is scheduled for May 26, 2025
- Continue cardiovascular care with Dr iVrginia Rodriguez.
Copy to:
Primary Care Provider: Dr Dale Carias
Primary Director Of Compliance: Dr Virginia Rodriguez
[2025-02-14 09:01] LABS: Glucose - Point of Care 130 mg/dl (70-99)
[2025-02-14 16:27] LABS: Glucose - Point of Care 122 mg/dl (70-99)
--- NOTE | 2025-02-14 17:05 | CM ---
Chart reviewed. Patient is independent of ADLS, lives alone in a [address], [facility], ambulates long distances with a rollator, supportive sister who lives close. Plan is for the patient to return home. CM to follow
--- NOTE | 2025-02-14 17:07 | PTCARENOTE ---
received patient from laboratory scientist s/p PVI via right fem vein, figure 8 , dsg. D/I, distal pulse palpable. patient is awake, answering questions appropriately, monitor shows A paced, VSS. patient aware of keeping HOB 30 degrees until figure 8 sutures
are removed. patient has moist cough, instructed patient to hold groin when coughing. oriented to room and surroundings. sister at bedside.
[2025-02-14] MEDS: ELIQUIS 5 MG PO (21:59)
[2025-02-14] MEDS: LIPITOR 40 MG PO (21:59)
[2025-02-14] MEDS: PACERONE 200 MG PO (22:00)
--- NOTE | 2025-02-14 22:18 | PTCARENOTE ---
figure eight removed from rt groin. Pt started bleeding shortly after she turned. Manual pressure applied for 20 min., hemostasis achieved, dsg changed. Positive pulses throughout rt leg.
[2025-02-14 22:20] LABS: Glucose - Point of Care 179 mg/dl (70-99)
[2025-02-15 04:19] VITALS: BP 122/49
[2025-02-15 04:40] VITALS: BMI 24.6
[2025-02-15 04:49] LABS: Hematocrit 33.2 % (37.0-47.0); Hemoglobin 11.5 g/dL (12.0-16.0); Mean Corp Hgb Conc. 34.6 g/dL (33.0-37.0); Mean Corpuscular Volume 96.8 fL (81.0-99.0); Platelet Count 160 10^3/uL (130-400); Red Cell Dist. Width 13.6 % (11.5-14.5)
[2025-02-15 05:14] LABS: Blood Urea Nitrogen 37 mg/dl (7-17); Calcium 9.1 mg/dl (8.4-10.2); Carbon Dioxide 23 mmol/L (22-30); Chloride 107 mmol/L (98-107); Estimated Creatinine Clearance 31 ml/min; Glucose 139 mg/dl (70-99); Magnesium 2.0 mg/dl (1.6-2.3); Potassium 5.0 mmol/L (3.5-5.1); Sodium 134 mmol/L (135-145); eGFR 40.80
[2025-02-15] MEDS: SYNTHROID 50 MCG PO (06:17)
[2025-02-15 07:54] VITALS: BP 108/49
[2025-02-15 08:16] LABS: Glucose - Point of Care 134 mg/dl (70-99)
[2025-02-15] MEDS: ELIQUIS 5 MG PO (08:20)
[2025-02-15 09:04] LABS: Glycohemoglobin (HgbA1c) 5.9 % (4.0-5.9)
--- NOTE | 2025-02-15 09:22 | W.PN.CARDCBS ---
Addendum entered and electronically signed by Joel Houser MD 02/15/25 09:43:
Patient seen and examined
Agree with REGISTERED VASCULAR TECHNOLOGIST (RVT) note and assessment
Agree with REGISTERED VASCULAR TECHNOLOGIST (RVT) plan
Telemetry atrial pacing overnight
Feeling well this morning
Exam:
As per REGISTERED VASCULAR TECHNOLOGIST (RVT) note
Bilateral groins clean dry intact
Cor regular no murmur
Lungs clear to auscultation bilaterally
Abdomen soft nontender positive bowel sounds
Nonfocal neurologically
84 y/o, PMH wild-type change duration related (ATTR) cardiac amyloidosis on tafamidis, recurrent symptomatic AFib with fatigue and dyspnea. [id number], maintained on eliquis, amiodarone.
S/P PFA. AVPaced on tele overnight, no afib/arrhythmia. Groin with mild ooze post procedure, managed with manual compression and no further issue overnight.
IMPRESSION:
AFib
s/p PFA, 02/14/25
ATTR Cardiac Amyloidosis
SSS, s/p PPM
Hypomagnesemia
HLD
DM/peripheral neuropathy
CKD3b
Cerebral aneurysm w/prior craniotomy
spinal stenosis
orthostatic hypotension
PLAN:
groin site stable
tele AVPaced
oob ambulating
resume eliquis last evening
continue amiodarone 200/d as before. She has a pacemaker in place given her history of amyloidosis
Magnesium improved with daily PO supplement- will continue- repeat in 3-4 weeks
Followup w/Dr. Rodriguez in May 2025 as scheduled
home today
Original Note:
Today's Communication / Plan
-
Continue eliquis, amiodarone
BMP, Mg+ bloodwork in 3-4 weeks, continue Mag supplement
followup w/Dr. Rodriguez
home today
Impression / Plan
-
PCP: Dale Carias MD
CDY: Virginia Rodriguez MD
84 y/o, PMH wild-type change duration related (ATTR) cardiac amyloidosis on tafamidis, recurrent symptomatic AFib with fatigue and dyspnea. [id number], maintained on eliquis, amiodarone.
S/P PFA. AVPaced on tele overnight, no afib/arrhythmia. Groin with mild ooze post procedure, managed with manual compression and no further issue overnight.
IMPRESSION:
AFib
s/p PFA, 02/14/25
ATTR Cardiac Amyloidosis
SSS, s/p PPM
Hypomagnesemia
HLD
DM/peripheral neuropathy
CKD3b
Cerebral aneurysm w/prior craniotomy
spinal stenosis
orthostatic hypotension
PLAN:
groin site stable
tele AVPaced
oob ambulating
resume eliquis last evening
continue amiodarone 200/d as before
Magnesium improved with daily PO supplement- will continue- repeat in 3-4 weeks
Followup w/Dr. Rodriguez in May 2025 as scheduled
Reviewed EP report and meds with patient, all questions answered
home today
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
Subjective
Date of Service: February 15, 2025
Denies cp/palps/dyspnea
oob ambulating
groin site without pain
Objective
Labs:
02/15/25 04:37
02/15/25 04:37
Labs
Hgb 11.5 g/dL (12.0-16.0) L 02/15/25 04:37
Hct 33.2 % (37.0-47.0) L 02/15/25 04:37
Plt Count 160 10^3/uL (130-400) 02/15/25 04:37
Sodium 134 mmol/L (135-145) L 02/15/25 04:37
Potassium 5.0 mmol/L (3.5-5.1) 02/15/25 04:37
BUN 37 mg/dl (7-17) H 02/15/25 04:37
Creatinine 1.3 mg/dL (0.6-1.0) H 02/15/25 04:37
Glucose 139 mg/dl (70-99) H 02/15/25 04:37
Vital Signs and I&O:
Vital Signs
Temp Pulse Resp BP Pulse Ox
98.6 F 61 16 108/49 98
02/15/25 07:54 02/15/25 07:54 02/15/25 07:54 02/15/25 07:54 02/15/25 07:54
Vital Signs
Temp Pulse Resp BP Pulse Ox
98.6 F 61 16 108/49 98
02/15/25 07:54 02/15/25 07:54 02/15/25 07:54 02/15/25 07:54 02/15/25 07:54
Physical Exam
Physical Exam
AAOx3, MAEE 5/5
RRR S1 S2 no murmurs
CTA bilat, non labored
Right groin site w/dressing CDI, no ht/bleeding, non tender
bilat extremities w/palpable distal pulses, no edema
--- NOTE | 2025-02-15 09:31 | W.DS.TRANS ---
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
-
Discharge Instructions:
Sleep Apnea Risk Intermediate
Discharge Diagnosis/Procedures AFib, s/p ablation
Diet Low Cholesterol,Diabetic, Carb Controlled
Driving Restrictions No driving for 24 hours
Blood Work BMP, Magnesium levels in 3-4 weeks- results to
Dr. Rodriguez
Instructions:
Stand-Alone Forms: DC Instructions- Cath/EP Lab
Changes to Home Medications: No
Discharge Medications:
DC Medications w/original date entered in [facility]!
apixaban 5 mg tablet (Eliquis) 5 mg PO BID 07/25/24
atorvastatin 40 mg tablet 40 mg PO HS 07/25/24
levothyroxine 50 mcg tablet 50 mcg PO DAILY 07/25/24
pioglitazone 15 mg tablet 15 mg PO DAILY 07/25/24
semaglutide 7 mg tablet (Rybelsus) 14 mg PO DAILY 07/25/24
cholecalciferol (vitamin D3) 50 mcg (2,000 unit) capsule (Vitamin D3) 50 mcg PO DAILY 08/23/24
amiodarone 200 mg tablet 200 mg PO HS 01/27/25
tafamidis meglumine 20 mg capsule (Vyndaqel) 80 mg PO DAILY 02/14/25
magnesium oxide 400 mg PO DAILY 02/15/25
Home Medication Changes
Pending Results: No
[2025-02-15] MEDS: ACTOS 15 MG PO (09:56)
--- NOTE | 2025-02-15 11:19 | PTCARENOTE ---
received patient this am, monitor shows A pacing, VSS. bilat. hearing aids in place. right fem. vein dsg. D/I, distal pulse palpable. patient eating breakfast and hoping to be discharged today.
--- NOTE | 2025-02-15 11:32 | PTCARENOTE ---
D/C instructions given to patient, verbalizes understanding. INT D/C'd, telemetry D/C'd, personal belongings packed and sent home with patient. D/C to home via wc accompanied by staff.
== END 2025-02-15 11:00 | disposition home or self-care (01) ==
LOC: CATH 07:57
PROVIDERS: Nurse Practitioner; ATTENDING PHYSICIAN Internal Medicine Cardiovascular Disease; FAMILY PHYSICIAN Family Medicine; OTHER PHYSICIAN Internal Medicine Cardiovascular Disease
DX: I48.0 Paroxysmal atrial fibrillation (principal); E03.9 Hypothyroidism, unspecified; E11.22 Type 2 diabetes mellitus with diabetic chronic kidney disease; E11.42 Type 2 diabetes mellitus with diabetic polyneuropathy; E78.5 Hyperlipidemia, unspecified; E83.42 Hypomagnesemia; E85.4 Organ-limited amyloidosis; I49.5 Sick sinus syndrome; I12.9 Hypertensive chronic kidney disease with stage 1 through stage 4 chronic kidney disease, or unspecified chronic kidney disease; I65.29 Occlusion and stenosis of unspecified carotid artery; I67.1 Cerebral aneurysm, nonruptured; I95.1 Orthostatic hypotension; J98.4 Other disorders of lung; M19.90 Unspecified osteoarthritis, unspecified site; M48.00 Spinal stenosis, site unspecified; N18.32 Chronic kidney disease, stage 3b; Z87.891 Personal history of nicotine dependence; Z79.01 Long term (current) use of anticoagulants; Z79.890 Hormone replacement therapy; Z79.899 Other long term (current) drug therapy; Z90.49 Acquired absence of other specified parts of digestive tract; Z90.721 Acquired absence of ovaries, unilateral; K21.9 Gastro-esophageal reflux disease without esophagitis
CPT/HCPCS: C1732; C1894; C1769 ×2; C1730; C1892; C1759; 80048; 82962; 83036; 83735; 85027; 85347; 86900; 86901; 93005; 93656; 93657; C1733; C1766

== ENCOUNTER → 2025-03-10 13:54 | Outpatient (REF) | payer MEDICARE, OTHER, SELFPAY | LOC: RCS 13:54 | PROVIDERS: ATTENDING PHYSICIAN Internal Medicine Cardiovascular Disease; FAMILY PHYSICIAN Family Medicine | DX: I48.0 Paroxysmal atrial fibrillation (principal); E85.82 Wild-type transthyretin-related (ATTR) amyloidosis | CPT/HCPCS: 93306; 93356 ==